=== PATIENT | male | born 1945 | race Caucasian/White ===

== ENCOUNTER 2019-12-10 12:47 | Inpatient (IN) | payer OTHER, BC ==
--- NOTE | 2019-12-10 13:02 | PDOC ---
History of Present Illness - General Stated Complaint: Shortness of Breath - History of Present Illness Initial Comments: 12/10/19 13:02 HPI: This is a 74 y/o male with a PMH of NIDDM, Afib on Eliquis, COPD and emphysema not on home O2, and COVID in April BIB to the ED due to progressively worsening SOB with deterioration for the past few days. The patient was seeing his therapist's assistant Dr. Douglas this a.m. who has been working him up for the SOB. He wa s saturating 98% on RA but when he began walking he dropped to the low 80's and he was advised to come into the ED. The SOB started getting worse 2 weeks ago, prior to the patient reports he was able to mow the lawn. For the past few days he has been having the SOB with accompanying lightheadedness and feeling as though he was going to pass out. Denies chest pain, abdominal pain, dysuria, nausea/vomiting, or fever/chills. ROS: GENERAL/CONSTITUTIONAL: No fever/chills, diaphoresis. Yes generalized weakness. HEENT: No change in vision. No ear pain. No sore throat. CARDIOVASCULAR: No chest pain, palpitations or peripheral edema RESPIRATORY: Yes shortness of breath and dypsnea with exertion. No cough, wheezing, or hemoptysis. GASTROINTESTINAL: No abdominal pain, nausea, vomiting, diarrhea or constipation. GENITOURINARY: No dysuria, frequency, or change in urination. MUSCULOSKELETAL: No joint or muscle swelling or pain. SKIN: No rash or hives NEUROLOGIC: No headache, vertigo, focal weakness, loss of consciousness, or change in strength/sensation. Yes lightheadedness ENDOCRINE: No increased thirst. No unexplained weight loss. HEMATOLOGIC/LYMPHATIC: No anemia, easy bleeding, or history of blood clots. PMH: NIDDM, Afib on Eliquis, COPD and emphysema not on home O2, and COVID in April PSx: Denied Social Hx: Denied etoh, tobacco, drug use Meds: See nurse note Allergies: See nurse note PE: GENERAL: Awake, alert, and fully oriented, in some respiratory distress. Patient is saturating 98% on 3L NC. Struggling to speak in full sentences. HEENT: Normocephalic, atraumatic. PERRLA, EOMI. No conjunctival pallor. Moist mucous membranes. NECK: Normal ROM and supple. No lymphadenopathy, JVD, or masses. CARDIOVASCULAR: Regular rate and rhythm, normal S1 and S2, no murmurs, rubs or gallops PULMONARY: Tachypneic. Breath sounds equal, clear to auscultation bilaterally. No wheezes, rales or rhonchi. ABDOMEN: Soft, nontender, normoactive bowel sounds. No guarding, no rebound. No masses EXTREMITIES: Normal range of motion, no edema or erythema, no calf tenderness. No clubbing or cyanosis. NEUROLOGICAL: Cranial nerves II through XII grossly intact. Normal speech SKIN: Warm, Dry, normal turgor, no rashes or lesions noted. Normal capillary refill. MDM: 12/10/19 13:44 This is a 74 y/o male with a PMH of NIDDM, Afib on Eliquis, COPD and emphysema not on home O2, and COVID in April BIBA to the ED due to progressively worsening SOB with deteriorating for the past few days. - Previously diagnosed with COVID in April, and has been declining since. - Not on home O2 - Saturating in 80's on 2L NC, turned up to 3L ddx: CHF vs COPD exacerbation, pneumonia, acs, ILD post COVID CBC, CMP, BNP, ABG CXR, EKG 10mg decadron - Plan to place on Bipap 12/10/19 14:29 CXR: IMPRESSION: Emphysematous changes as discussed above with bronchiectasis. ILD is suspected. Correlate clinically. Lung parenchymal changes have worsened as compared to prior imaging 2005. Multiple cystic lesions within the visualized portions of the kidneys which should be further assessed with ultrasound imaging. 12/10/19 14:58 CBC WNL CMP w/ Creat 1.7 - Prev hx of kidney ds BNP 3941 - no previous value for comparison - Patient feeling much better on Bipap - Vital stable 12/10/19 15:01 - Spoke with Dr. Douglas - no advanced imaging 12/10/19 15:21 - Admitted to Dr. Augustin Past History - Medical History Allergies/Adverse Reactions: Allergies Allergy/AdvReac Type Severity Reaction Status Date / Time No Known Allergies Allergy Verified 12/10/19 14:35 Home Medications: Ambulatory Orders Albuterol Sulfate Inhaler - [Ventolin Hfa Inhaler -] 2 inh PO QID 12/10/19 Apixaban [Eliquis] 5 mg PO BID 12/10/19 Atorvastatin Calcium 40 mg PO HS 12/10/19 Losartan Potassium 50 mg PO DAILY 12/10/19 Metformin HCl [Glucophage] 1,000 mg PO BID 12/10/19 Metoprolol Succinate 50 mg PO DAILY 12/10/19 Saxagliptin HCl [Onglyza] 5 mg PO DAILY 12/10/19 Solifenacin Succinate [Vesicare -] 5 mg PO DAILY 12/10/19 ED Treatment Course - LABORATORY CBC & Chemistry Diagram: 12/10/19 14:00 12/10/19 14:00 Discharge - Discharge Information Problems reviewed: Yes Clinical Impression/Diagnosis: COPD with acute exacerbation - Follow up/Referral - Patient Discharge Instructions - Post Discharge Activity
[2019-12-10 13:18] VITALS: BMI 29.5
--- NOTE | 2019-12-10 14:07 | PDOC ---
Documentation entered by Emanuel Yousif SCRIBE, acting as scribe for Jaylen Torres MD. Jaylen Torres MD: This documentation has been prepared by the Benja hernandez Xhesika, SCRIBE, under my direction and personally reviewed by me in its entirety. I confirm that the documentation accurately reflects all work, treatment, procedures, and medical decision making performed by me. Attending Attestation - Resident Resident Name: Bianca Carrillo - ED Attending Attestation I have performed the following: I have examined & evaluated the patient, The case was reviewed & discussed with the resident, I agree w/resident's findings & plan, Exceptions are as noted - HPI HPI: 12/10/19 13:20 The patient is a 74 year old male with a significant PMH of afib, on eliquis, COPD, and COVID (in April 2019) who presents to the emergency department for several weeks of worsening SOB on exertion. Pt reports cough without any productive sputum, leg swelling, calf pain or hemotysis. Pt states he was seen by Dr. Douglas this morning, Dr. Douglas pushed him to walk, pt desatted and was advised to come to the ED. Pt states he does not use any oxygen at home. The patient denies chest pain, headache and dizziness. Denies fever, chills, nausea, vomiting, diarrhea and constipation. Denies dysuria, frequency, urgency and hematuria. Pt has had an occasional complaint of intermittent episodes of lightehadedness, last episode yesterday this morning, lasts for several minutes at a time and feels like he is about to pass out, but denies any actual syncaop episodes - there are no associated cp, sob, n/v diaphoresis, palitations with the epsidoes. Allergies: Per Nursing Chart - Physicial Exam PE: 12/10/19 14:04 GENERAL: The patient is awake, alert, and fully oriented, Nontoxic - in no acute distress. HEAD: Normocephalic, atraumatic. EYES: extraocular movements intact, sclera anicteric, conjunctiva clear. ENT: Normal voice, Moist mucous membranes. NECK: Normal range of motion, supple LUNGS: scattered rales, no actue respiratory distress, speaking complete setnences HEART: Regular rate and rhythm, normal S1 and S2 without murmur, rub or gallop. ABDOMEN: Soft, nontender, No guarding, no rebound. No CVA tenderness EXTREMITIES: Normal range of motion, no edema. Neg homnas, no calf tendrness NEUROLOGICAL: No facial assymetry, Normal speech, PSYCH: Normal mood, normal affect. SKIN: Warm, Dry, normal turgor, - Medical Decision Making 12/10/19 14:05 suspect possible copd vs pna vs chf vs scarrng vs afib will obtain blood work, cxr, ekg will reassesss pt started on bipap Heart Score/ECG Review - ECG Impressions Comment:: 12/10/19 14:07 Twelve-lead EKG was performed and reviewed by me. Irregularly irregular, rate of 87 Right bundle branch block T wave inversions in V1 through V4, III and aVF Discharge - Discharge Information Problems reviewed: Yes Clinical Impression/Diagnosis: COPD with acute exacerbation, Acute respiratory failure with hypoxia Condition: Fair Disposition: HOME - Follow up/Referral - Patient Discharge Instructions - Post Discharge Activity
[2019-12-10] MEDS ORDERED: methylPREDNISolone NA SUCC 125 MG/2 ML VIAL IVPB ONE (14:24)
[2019-12-10 14:33] LABS: BASO % 0.7 % (0-2.0); EOS % 2.5 % (0-4.5); HEMATOCRIT 39.8 % (35.4-49); HEMOGLOBIN 13.3 GM/dL (11.7-16.9); LYMPH % 10.9 % (8-40); MCH 29.1 pg (25.7-33.7); MCHC 33.4 g/dl (32.0-35.9); MEAN CELL VOLUME 87.2 fl (80-96); MEAN PLT VOLUME 8.9 fl (7.5-11.1); MONO % 7.1 % (3.8-10.2); NEUT % 78.8 % (42.8-82.8); PLATELET COUNT 235 K/MM3 (134-434); RBC 4.57 M/mm3 (4.00-5.60); RDW 15.5 % (11.9-15.9); WHITE BLOOD COUNT 11.3 K/mm3 (4.0-10.0)
[2019-12-10] MEDS ORDERED: DEXAMETHASONE SOD PHOSPHATE 10 MG/1 ML VIAL IVPUSH ONE (14:42)
[2019-12-10] MEDS ORDERED: DEXAMETHASONE SOD PHOSPHATE 10 MG/1 ML VIAL ONE (14:49)
[2019-12-10 15:12] LABS: ALBUMIN 3.4 g/dl (3.4-5.0); BILIRUBIN,TOTAL 0.8 mg/dL (0.2-1); BLOOD UREA NITROGEN 33.1 mg/dL (7-18); CALCIUM 9.4 mg/dL (8.5-10.1); CREATININE 1.7 mg/dL (0.55-1.3); N-TERMINAL BNP 3941.8 pg/ml (5-450); POTASSIUM 5.1 mmol/L (3.5-5.1); TOT PROT 6.9 g/dl (6.4-8.2)
[2019-12-10 15:15] LABS: ARTERIAL BLD GAS O2 SATURATION 94.4 mmHg (95-98); ARTERIAL BLOOD GAS BASE EXCESS -5.4 mmol/L (-2-2); ARTERIAL BLOOD GAS PO2 68.4 mmHg (80-100); ARTERIAL BLOOD GAS pH 7.426 (7.350-7.450)
[2019-12-10 15:17] LABS: VENT MODE ST
[2019-12-10 15:18] LABS: VENT RATE 12
[2019-12-10] MEDS ORDERED: ALBUTEROL SO4 HFA INHALER IH PRN (16:30)
--- NOTE | 2019-12-10 16:40 | HP ---
Admitting History and Physical - Primary Care Physician PCP: Abbey Augustin - Admission Chief Complaint: dyspnea History of Present Illness: progressively worsening exertional dyspnea on minimal activities associated with dry cough for several days has had covid 19 infection in april-breathing has not been the same since home O2 went down to 80s History Source: Patient Limitations to Obtaining History: No Limitations - Past Medical History Cardiovascular: Yes: AFIB, HTN Pulmonary: Yes: COPD, Other (ILD non CT scan done in September 2019) Renal/: Yes: Renal Inusuff Endocrine: Yes: Diabetes Mellitus - Smoking History Smoking history: Former smoker Have you smoked in the past 12 months: No - Alcohol/Substance Use Hx Alcohol Use: No History of Substance Use: reports: None - Social History Usual Living Arrangement: Yes: With Spouse ADL: Independent History of Recent Travel: No (was in [facility] early April 2019) Home Medications - Allergies Allergies/Adverse Reactions: Allergies Allergy/AdvReac Type Severity Reaction Status Date / Time No Known Allergies Allergy Verified 12/10/19 14:35 - Home Medications Home Medications: Ambulatory Orders Albuterol Sulfate Inhaler - [Ventolin Hfa Inhaler -] 2 inh PO QID 12/10/19 Apixaban [Eliquis] 5 mg PO BID 12/10/19 Atorvastatin Calcium 40 mg PO HS 12/10/19 Losartan Potassium 50 mg PO DAILY 12/10/19 Metformin HCl [Glucophage] 1,000 mg PO BID 12/10/19 Metoprolol Succinate 50 mg PO DAILY 12/10/19 Saxagliptin HCl [Onglyza] 5 mg PO DAILY 12/10/19 Solifenacin Succinate [Vesicare -] 5 mg PO DAILY 12/10/19 Family Medical History Family History: Unremarkable Review of Systems - Review of Systems Constitutional: reports: No Symptoms Eyes: reports: No Symptoms HENT: reports: No Symptoms Neck: reports: No Symptoms Cardiovascular: denies: Chest Pain, Edema, Palpitations Respiratory: reports: Cough, Exercise Intolerance, SOB on Exertion, Wheezing (mild) Gastrointestinal: reports: No Symptoms Genitourinary: reports: No Symptoms Musculoskeletal: reports: No Symptoms Neurological: reports: Other (reports ''black outs" in past couple days-he does not remember events, LOC or syncope) Psychiatric: reports: No Symptoms Physical Examination Vital Signs: Vital Signs Temperature 98.2 F 12/10/19 13:10 Pulse Rate 77 12/10/19 13:50 Respiratory Rate 20 12/10/19 13:10 Blood Pressure 135/64 12/10/19 13:10 O2 Sat by Pulse Oximetry (%) 98 12/10/19 13:50 Constitutional: Yes: Well Nourished, Calm Eyes: Yes: Conjunctiva Clear HENT: Yes: Atraumatic Neck: Yes: Supple, Other (no JVD) Cardiovascular: Yes: Pulse Irregular Respiratory: Yes: On BiPap, On Nasal O2, Poor Air Entry Gastrointestinal: Yes: Normal Bowel Sounds, Soft Musculoskeletal: Yes: WNL Extremities: Yes: WNL Edema: No Peripheral Pulses WNL: Yes Integumentary: Yes: WNL Neurological: Yes: WNL Psychiatric: Yes: WNL Labs: CBC, BMP 12/10/19 14:00 12/10/19 14:00 BNP 3900 Imaging - Results Chest X-ray: Image Reviewed Problem List - Problems (1) COPD with acute exacerbation Code(s): J44.1 - CHRONIC OBSTRUCTIVE PULMONARY DISEASE W (ACUTE) EXACERBATION (2) Interstitial lung disease Code(s): J84.9 - INTERSTITIAL PULMONARY DISEASE, UNSPECIFIED (3) Atrial fibrillation Code(s): I48.91 - UNSPECIFIED ATRIAL FIBRILLATION Qualifiers: Atrial fibrillation type: paroxysmal Qualified Code(s): I48.0 - Paroxysmal atrial fibrillation (4) Hypertension Code(s): I10 - ESSENTIAL (PRIMARY) HYPERTENSION Qualifiers: Hypertension type: essential hypertension Qualified Code(s): I10 - Essential (primary) hypertension (5) Diabetes mellitus Code(s): E11.9 - TYPE 2 DIABETES MELLITUS WITHOUT COMPLICATIONS Qualifiers: Diabetes mellitus type: type 2 Diabetes mellitus terminal carman insulin use: without terminal carman use Assessment/Plan iv steroid BIPAP echo for LV fnct cont home medication
[2019-12-10] MEDS: methylPREDNISolone NA SUCC 40 MG/1 ML VIAL IVPUSH SCH ×2 (18:27→22:33)
[2019-12-10] MEDS: APIXABAN 5 MG TABLET PO SCH (22:33)
[2019-12-10] MEDS: metFORMIN HCL 500 MG TABLET (FP) PO SCH (22:33)
[2019-12-10] MEDS: ATORVASTATIN CA 40 MG TABLET (FP) PO SCH (22:33)
[2019-12-10] MEDS: INSULIN SLIDING SCALE (NOVOLOG) 1 VIAL SQ SCH (22:34)
[2019-12-11] MEDS ORDERED: PT OWN MED DRAWER 7, Y5N ONE ×2 (03:50→10:28)
[2019-12-11] MEDS: methylPREDNISolone NA SUCC 40 MG/1 ML VIAL IVPUSH SCH ×4 (03:53→22:31)
[2019-12-11] MEDS: metFORMIN HCL 500 MG TABLET (FP) PO SCH ×2 (06:15→21:01)
[2019-12-11] MEDS: INSULIN SLIDING SCALE (NOVOLOG) 1 VIAL SQ SCH ×4 (06:20→21:00)
--- NOTE | 2019-12-11 08:08 | PN ---
Progress Note (short form) - Note Progress Note: not on BIPAP overnight-patient did not want to use it covid19 negative Vital Signs Period Temp Pulse Resp BP Sys/Meraz Pulse Ox Last 24 Hr 97.6 F-98.2 F 77-96 18-20 106-151/60-92 92-98 s1s2 rrr lungs poor inspiratory effort abd soft non tender no edema c/o difficulty urinating 74 yo man with h/o COPD, Afib, HTN, NIDDM covid19 pneumonia in April-never hospitalized for it now with acute COPD exacerbation interstitial lung ds post covid? iv steroids o2 nebulizers sugar control continue home cardiac meds check echo r/o CHF, BNP was elevated on admission c/o urianry retention add flomax check bladder scan will need home o2 Problem List - Problems (1) COPD with acute exacerbation Code(s): J44.1 - CHRONIC OBSTRUCTIVE PULMONARY DISEASE W (ACUTE) EXACERBATION (2) Interstitial lung disease Code(s): J84.9 - INTERSTITIAL PULMONARY DISEASE, UNSPECIFIED (3) Atrial fibrillation Code(s): I48.91 - UNSPECIFIED ATRIAL FIBRILLATION Qualifiers: Atrial fibrillation type: paroxysmal Qualified Code(s): I48.0 - Paroxysmal atrial fibrillation (4) Hypertension Code(s): I10 - ESSENTIAL (PRIMARY) HYPERTENSION Qualifiers: Hypertension type: essential hypertension Qualified Code(s): I10 - Essential (primary) hypertension (5) Diabetes mellitus Code(s): E11.9 - TYPE 2 DIABETES MELLITUS WITHOUT COMPLICATIONS Qualifiers: Diabetes mellitus type: type 2 Diabetes mellitus intermodal customer service insulin use: without custodial use
[2019-12-11] MEDS ORDERED: SOLIFENACIN SUCCINATE 5 MG TAB PO SCH (10:00)
--- NOTE | 2019-12-11 10:08 | EKG ---
Test Reason : Blood Pressure : / mmHG Vent. Rate : 087 BPM Atrial Rate : 091 BPM P-R Int : 000 ms QRS Dur : 144 ms QT Int : 410 ms P-R-T Axes : 000 011 -16 degrees QTc Int : 493 ms ATRIAL FIBRILLATION RIGHT BUNDLE BRANCH BLOCK ABNORMAL ECG WHEN COMPARED WITH ECG OF 15-FEB-2006 09:34, RIGHT BUNDLE BRANCH BLOCK IS NOW PRESENT Confirmed by MD David, Abilio ([id number]) on 12/11/2019 10:08:20 AM Referred By: Confirmed By:Abilio Hernandez MD
[2019-12-11] MEDS: APIXABAN 5 MG TABLET PO SCH ×2 (10:31→21:01)
[2019-12-11] MEDS: LOSARTAN POTASSIUM 50 MG TABLET PO SCH (10:32)
[2019-12-11] MEDS: TAMSULOSIN HCL 0.4 MG CAP PO SCH (10:32)
--- NOTE | 2019-12-11 10:52 | ECHO ---
Version: 1 Name: SELENE LINARES Exam: Adult Echocardiogram Study Date: 12/11/2019, 9:34 AM Age: 74 Years MMode/2D Measurements & Calculations IVSd: 1.23 cm LVIDs: 3.5 cm LVIDd: 5.0 cm LVPWd: 1.27 cm LAV (MOD-bp): 207.0 ml LVOT diam: 2.04 cm Ao root diam: 4.0 cm LA dimension: 5.9 cm Doppler Measurements & Calculations MV E max irvin: 70.4 cm/sec Med E/e': 6.9 MV A max irvin: 38.6 cm/sec Med Peak E' Irvin: 10.2 cm/sec MV E/A: 1.83 Lat E/e': 4.8 Lat Peak E' Irvin: 14.8 cm/sec MR max P.5 mmHg Ao max P.2 mmHg Ao V2 max: 143.3 cm/sec AI P1/2t: 501.3 msec TR max irvin: 384.3 cm/sec TR max P.9 mmHg Left Ventricle The left ventricular size, thickness and function are normal. EF 56%. Abnormal diastolic relaxation. Right Ventricle The right ventricle is normal in size and function. Atria Severe LAE. Moderate to Severe ANABEL. Mitral Valve Mitral Valve Prolapse. Moderate MR. Tricuspid Valve The tricuspid valve is normal in structure and function. Moderate TR, The PASP is 53 mmHg consistent with moderate to severe pulmonary HTN. Aortic Valve Fibrocalcific calcific changes to the aortic valve without aortic stenosis. Mild to moderate aortic insuffciency. Pulmonic Valve The pulmonic valve is normal in structure and function. Great Vessels The aortic root measured 4.0 cm. Pericardium/Pleura There is no pericardial effusion. Summary Statements The left ventricular size, thickness and function are normal Abnormal diastolic relaxation The right ventricle is normal in size and function. Moderate to Severe ANABEL Severe LAE Mitral Valve Prolapse Moderate MR The tricuspid valve is normal in structure and function. Moderate TR, The PASP is 53 mmHg consistent with moderate to severe pulmonary HTN Fibrocalcific calcific changes to the aortic valve without aortic stenosis Mild to moderate aortic insuffciency MD Abilio Hernandez 12/11/2019, 10:51 AM Ordering Physician: Abbey Augustin Performed By: Maria D Mcgrath
--- NOTE | 2019-12-11 12:36 | CON.PULM ---
Consult Consult Specialty:: PULM/CCM Referred by:: SYLVIA Reason for Consultation:: SOB - History of Present Illness Chief Complaint: SOB History of Present Illness: 74 M, AFib on eliquis, COPD due to previous , and COVID (in April 2019). Did not require any hospitalization or specific treatment. Admitted via the ER due to worsening SOB on exertion for the past few days. Was seen by Dr Douglas and subsequently sent to the hospital. No fever or chills. No hemoptysis or night sweats. No travel history or specific sick contacts. - History Source History Provided By: Patient Limitations to Obtaining History: No Limitations - Past Medical History Cardio/Vascular: Yes: AFIB, HTN Pulmonary: Yes: Bronchitis, COPD, Other (ILD non CT scan done in September 2019). No: Asthma, Cancer, O2 Dependent, Pneumonia, Previously Intubated, Pulmonary Embolus, Pulmonary Fibrosis, Sleep Apnea Renal/: Yes: Renal Inusuff Endocrine: Yes: Diabetes Mellitus - Alcohol/Substance Use Hx Alcohol Use: No History of Substance Use: reports: None - Smoking History Smoking history: Former smoker Have you smoked in the past 12 months: No - Social History ADL: Independent History of Recent Travel: No (was in [facility] early April 2019) Home Medications - Allergies Allergies/Adverse Reactions: Allergies Allergy/AdvReac Type Severity Reaction Status Date / Time No Known Allergies Allergy Verified 12/10/19 14:35 - Home Medications Home Medications: Ambulatory Orders Albuterol Sulfate Inhaler - [Ventolin Hfa Inhaler -] 2 inh PO QID 12/10/19 Apixaban [Eliquis] 5 mg PO BID 12/10/19 Atorvastatin Calcium 40 mg PO HS 12/10/19 Losartan Potassium 50 mg PO DAILY 12/10/19 Metformin HCl [Glucophage] 1,000 mg PO BID 12/10/19 Metoprolol Succinate 50 mg PO DAILY 12/10/19 Saxagliptin HCl [Onglyza] 5 mg PO DAILY 12/10/19 Solifenacin Succinate [Vesicare -] 5 mg PO DAILY 12/10/19 Family Medical History Family History: Unremarkable Review of Systems - Review of Systems Constitutional: reports: Malaise. denies: Chills, Fever, Night Sweats Eyes: reports: No Symptoms, Recent Change in Vision Neck: reports: No Symptoms Cardiovascular: reports: Shortness of Breath. denies: Chest Pain, Edema, Palpitations Respiratory: reports: Cough, SOB, SOB on Exertion. denies: Hemoptysis, PND, Snoring, Wheezing Gastrointestinal: reports: No Symptoms Genitourinary: reports: No Symptoms Breasts: reports: No Symptoms Reported Musculoskeletal: reports: No Symptoms Integumentary: reports: No Symptoms Neurological: reports: No Symptoms Endocrine: reports: No Symptoms Hematology/Lymphatic: reports: No Symptoms Psychiatric: reports: No Symptoms Physical Exam Vital Sings: Vital Signs Temperature 97.3 F L 12/11/19 10:00 Pulse Rate 96 H 12/11/19 10:00 Respiratory Rate 19 12/11/19 10:00 Blood Pressure 124/82 12/11/19 10:00 O2 Sat by Pulse Oximetry (%) 92 L 12/11/19 10:00 Constitutional: Yes: No Distress, Calm Eyes: Yes: Conjunctiva Clear, EOM Intact HENT: Yes: Atraumatic, Normocephalic Neck: Yes: Supple, Trachea Midline Cardiovascular: Yes: Regular Rate and Rhythm Respiratory: Yes: Cough, Diminished, On Nasal O2, Rhonchi, SOB, SOB on Exertion, Wheezes. No: Accessory Muscle Use, Rales, Stridor, Tachypnea ...Inspection: Yes: WNL ...Clubbing: No Gastrointestinal: Yes: Normal Bowel Sounds, Soft Renal/: Yes: WNL Musculoskeletal: Yes: WNL Extremities: Yes: WNL Edema: No Peripheral Pulses WNL: Yes Integumentary: Yes: WNL Neurological: Yes: WNL, Alert, Oriented ...Motor Strength: WNL Psychiatric: Yes: WNL, Alert, Oriented Labs: CBC, BMP 12/10/19 14:00 12/10/19 14:00 ABG Results ABG pH 7.426 (7.350-7.450) 12/10/19 14:45 ABG HCO3 17.4 mmol/L (22-27) L 12/10/19 14:45 ABG O2 Sat (Measured) 94.4 mmHg (95-98) L 12/10/19 14:45 ABG O2 Content No Result Required. 12/10/19 14:45 ABG Base Excess -5.4 mmol/L (-2-2) L 12/10/19 14:45 Imaging - Results Chest X-ray: Report Reviewed, Image Reviewed Cat Scan: Report Reviewed, Image Reviewed Problem List - Problems (1) Atrial fibrillation Code(s): I48.91 - UNSPECIFIED ATRIAL FIBRILLATION Qualifiers: Atrial fibrillation type: paroxysmal Qualified Code(s): I48.0 - Paroxysmal atrial fibrillation (2) COPD with acute exacerbation Code(s): J44.1 - CHRONIC OBSTRUCTIVE PULMONARY DISEASE W (ACUTE) EXACERBATION (3) Diabetes mellitus Code(s): E11.9 - TYPE 2 DIABETES MELLITUS WITHOUT COMPLICATIONS Qualifiers: Diabetes mellitus type: type 2 Diabetes mellitus vermin exterminator insulin use: without vermin exterminator use (4) Hypertension Code(s): I10 - ESSENTIAL (PRIMARY) HYPERTENSION Qualifiers: Hypertension type: essential hypertension Qualified Code(s): I10 - Essential (primary) hypertension (5) Interstitial lung disease Code(s): J84.9 - INTERSTITIAL PULMONARY DISEASE, UNSPECIFIED Assessment/Plan IMP: Possible worsening of ILD due to previous COVID19 pneumonitis Do not suspect PNA PLAN: Medrol Spiriva Supplemental O2 as needed Eliquis Albuterol HFA No smoking Monitor off ABX Will follow Thank you. Dr Garcia
[2019-12-11] MEDS: TIOTROPIUM BROMIDE 2.5 MCG (SPIRIVA) RESPIMAT INHALER IH SCH (15:29)
[2019-12-11] MEDS: ATORVASTATIN CA 40 MG TABLET (FP) PO SCH (21:01)
--- NOTE | 2019-12-11 22:59 | HOSP ---
Subjective - Review of Symptoms Events since last encounter: Hospitalist Encounter Was notified by the RN that the patient hasn't voided since the start of her shift. She used the bladder scan and it showed 619. Order placed for Harris Catheter for urinary retention Physical Examination Vital Signs: Vital Signs Temperature 98.7 F 12/11/19 20:48 Pulse Rate 75 12/11/19 21:15 Respiratory Rate 16 12/11/19 20:48 Blood Pressure 108/72 12/11/19 20:48 O2 Sat by Pulse Oximetry (%) 98 12/11/19 21:15 Labs: CBC, BMP 12/10/19 14:00 12/10/19 14:00 Hospitalist Encounter Assessment: This is a 74 y/o male with a PMH of NIDDM, Afib on Eliquis, COPD and emphysema not on home O2, and COVID in April to the ED due to progressively worsening SOB with deterioration for the past few days. Admitted for COPD Exacerbation Outcome: The RN was unsuccessful placing harris cath reported resistance 14fr straight catheter placed by md, initial output measured 500ml. d/w RN continue strict INOs, continue Flomax Recommendations/Interventions: Urology Consult for Urinary Retention
[2019-12-12] MEDS ORDERED: MAG HYDROX/AL HYDROX/SIMETH 30 ML UNIT-DOSE CUP PO ONE (02:43)
[2019-12-12] MEDS: methylPREDNISolone NA SUCC 40 MG/1 ML VIAL IVPUSH SCH ×4 (03:48→21:27)
[2019-12-12] MEDS: metFORMIN HCL 500 MG TABLET (FP) PO SCH ×2 (06:06→21:27)
[2019-12-12] MEDS: INSULIN SLIDING SCALE (NOVOLOG) 1 VIAL SQ SCH ×4 (06:07→21:33)
[2019-12-12 07:55] LABS: BASO % 0.1 % (0-2.0); HEMATOCRIT 36.6 % (35.4-49); HEMOGLOBIN 12.2 GM/dL (11.7-16.9); LYMPH % 3.1 % (8-40); MCH 29.6 pg (25.7-33.7); MCHC 33.4 g/dl (32.0-35.9); MEAN CELL VOLUME 88.6 fl (80-96); MEAN PLT VOLUME 8.8 fl (7.5-11.1); MONO % 1.3 % (3.8-10.2); NEUT % 95.5 % (42.8-82.8); PLATELET COUNT 228 K/MM3 (134-434); RBC 4.13 M/mm3 (4.00-5.60); RDW 15.8 % (11.9-15.9); WHITE BLOOD COUNT 21.1 K/mm3 (4.0-10.0)
--- NOTE | 2019-12-12 08:27 | PN ---
Progress Note (short form) - Note Progress Note: CBC, BMP 12/12/19 06:27 Vital Signs Period Temp Pulse Resp BP Sys/Meraz Pulse Ox Last 24 Hr 97.3 F-98.7 F 75-96 16-20 100-136/52-82 90-98 s1s2 rrr lungs better air entry, coarse basal crackles abd soft non tender no edema c/o difficulty urinating had to be straight cathed twice yesterday with 800cc and 1200 cc residual staff reports difficulty passing catheter 74 yo man with h/o COPD, Afib, HTN, NIDDM covid19 pneumonia in April-never hospitalized for it now with acute COPD exacerbation interstitial lung ds post covid iv steroids-slow taper o2 nebulizers dc bipap pt has not used it since admission sugar control continue home cardiac meds echo reviewed shows pulm. htn urinary retention on flomax, will dc solifenacin requested urology f/up will need home o2 Problem List - Problems (1) COPD with acute exacerbation Code(s): J44.1 - CHRONIC OBSTRUCTIVE PULMONARY DISEASE W (ACUTE) EXACERBATION (2) Interstitial lung disease Code(s): J84.9 - INTERSTITIAL PULMONARY DISEASE, UNSPECIFIED (3) Atrial fibrillation Code(s): I48.91 - UNSPECIFIED ATRIAL FIBRILLATION Qualifiers: Atrial fibrillation type: paroxysmal Qualified Code(s): I48.0 - Paroxysmal atrial fibrillation (4) Hypertension Code(s): I10 - ESSENTIAL (PRIMARY) HYPERTENSION Qualifiers: Hypertension type: essential hypertension Qualified Code(s): I10 - Essential (primary) hypertension (5) Diabetes mellitus Code(s): E11.9 - TYPE 2 DIABETES MELLITUS WITHOUT COMPLICATIONS Qualifiers: Diabetes mellitus type: type 2 Diabetes mellitus watermelon harvesting supervisor insulin use: without watermelon harvesting supervisor use
[2019-12-12 08:43] LABS: POTASSIUM 4.4 mmol/L (3.5-5.1)
[2019-12-12 08:58] LABS: ALBUMIN 3.2 g/dl (3.4-5.0); BILIRUBIN,TOTAL 0.4 mg/dL (0.2-1); BLOOD UREA NITROGEN 51.4 mg/dL (7-18); CALCIUM 9.1 mg/dL (8.5-10.1); TOT PROT 6.5 g/dl (6.4-8.2)
[2019-12-12] MEDS: TAMSULOSIN HCL 0.4 MG CAP PO SCH (09:12)
[2019-12-12] MEDS: TIOTROPIUM BROMIDE 2.5 MCG (SPIRIVA) RESPIMAT INHALER IH SCH (09:12)
[2019-12-12] MEDS: LOSARTAN POTASSIUM 50 MG TABLET PO SCH (09:12)
[2019-12-12] MEDS: APIXABAN 5 MG TABLET PO SCH ×2 (09:12→21:27)
[2019-12-12 10:35] LABS: ANISOCYTOSIS 1+; MACROCYTOSIS 0; PLATELET ESTIMATE NORMAL
--- NOTE | 2019-12-12 10:37 | PN ---
Progress Note, Physician History of Present Illness: pulmonary alert,feeling better,less dyspneic on O2. ECHO ,moderate-severe pulmonary htn - Current Medication List Current Medications: Active Medications Albuterol Sulfate (Ventolin Hfa Inhaler -) 2 puff IH Q6H PRN PRN Reason: ASTHMA Apixaban (Eliquis -) 5 mg PO BID [facility] Last Admin: 12/12/19 09:12 Dose: 5 mg Documented by: Atorvastatin Calcium (Lipitor -) 40 mg PO HS [facility] Last Admin: 12/11/19 21:01 Dose: 40 mg Documented by: Insulin Aspart (Novolog Vial Sliding Scale -) 1 vial SQ ACHS [facility]; Protocol Last Admin: 12/12/19 06:07 Dose: 2 units Documented by: Losartan Potassium (Cozaar -) 50 mg PO DAILY [facility] Last Admin: 12/12/19 09:12 Dose: 50 mg Documented by: Metformin HCl (Glucophage -) 1,000 mg PO BID@0700,2200 [facility] Last Admin: 12/12/19 06:06 Dose: 1,000 mg Documented by: Methylprednisolone Sodium Succinate (Solu-Medrol -) 40 mg IVPUSH Q6H [facility] Last Admin: 12/12/19 09:11 Dose: 40 mg Documented by: Metoprolol Succinate (Toprol Xl -) 50 mg PO DAILY [facility] Last Admin: 12/12/19 09:12 Dose: 50 mg Documented by: Sitagliptin Phosphate (Januvia -) 100 mg PO ACBK [facility] Last Admin: 12/12/19 06:06 Dose: 100 mg Documented by: Tamsulosin HCl (Flomax -) 0.4 mg PO DAILY@0830 [facility] Last Admin: 12/12/19 09:12 Dose: 0.4 mg Documented by: Tiotropium [place] (Spiriva Respimat) 2 puff IH DAILY [facility] Last Admin: 12/12/19 09:12 Dose: 2 puff Documented by: - Objective Vital Signs: Vital Signs Temperature 97.7 F 12/12/19 06:00 Pulse Rate 84 12/12/19 06:00 Respiratory Rate 18 12/12/19 06:00 Blood Pressure 136/74 12/12/19 06:00 O2 Sat by Pulse Oximetry (%) 91 L 12/12/19 06:00 Constitutional: Yes: Well Nourished, Calm Eyes: Yes: WNL HENT: Yes: WNL Neck: Yes: WNL Cardiovascular: Yes: Pulse Irregular, S1, S2 Respiratory: Yes: Rales (bibasilar crackles) Gastrointestinal: Yes: Normal Bowel Sounds, Soft Extremities: Yes: WNL Edema: No Labs: CBC, BMP 12/12/19 06:27 12/12/19 06:27 Assessment/Plan Problem List - Problems (1) Atrial fibrillation Code(s): I48.91 - UNSPECIFIED ATRIAL FIBRILLATION Qualifiers: Atrial fibrillation type: paroxysmal Qualified Code(s): I48.0 - Paroxysmal atrial fibrillation (2) COPD with acute exacerbation Code(s): J44.1 - CHRONIC OBSTRUCTIVE PULMONARY DISEASE W (ACUTE) EXACERBATION (3) Diabetes mellitus Code(s): E11.9 - TYPE 2 DIABETES MELLITUS WITHOUT COMPLICATIONS Qualifiers: Diabetes mellitus type: type 2 Diabetes mellitus long-term insulin use: without keno terminal operator use (4) Hypertension Code(s): I10 - ESSENTIAL (PRIMARY) HYPERTENSION Qualifiers: Hypertension type: essential hypertension Qualified Code(s): I10 - Essential (primary) hypertension (5) Interstitial lung disease Code(s): J84.9 - INTERSTITIAL PULMONARY DISEASE, UNSPECIFIED Assessment/Plan IMP: Acute hypoxemic respiratory failure Copd Possible worsening of ILD due to previous COVID19 pneumonitis Moderate-Severe Pulmonary Htn PLAN: Medrol same dose Spiriva Supplemental O2 as needed Eliquis Albuterol HFA No smoking consider Cardiology evaluation DR SHANKS
--- NOTE | 2019-12-12 13:17 | CON.GU ---
Consult Consult Specialty:: Urology Referred by:: Medical service Reason for Consultation:: Urinary retention - History of Present Illness Chief Complaint: 74 yo male admitted for COPD wbc 21K w difficulty voiding. Pt straight cath for 800 and 1200 cc pvr. Pt states he is voiding today unclear on quantity - History Source History Provided By: Patient, Medical Record - Past Medical History Cardio/Vascular: Yes: AFIB, HTN Pulmonary: Yes: Bronchitis, COPD, Other (ILD non CT scan done in September 2019). No: Asthma, Cancer, O2 Dependent, Pneumonia, Previously Intubated, Pulmonary Embolus, Pulmonary Fibrosis, Sleep Apnea Renal/: Yes: Renal Inusuff, BPH Endocrine: Yes: Diabetes Mellitus - Alcohol/Substance Use Hx Alcohol Use: No History of Substance Use: reports: None - Smoking History Smoking history: Former smoker Have you smoked in the past 12 months: No - Social History ADL: Independent History of Recent Travel: No (was in [facility] early April 2019) Home Medications - Allergies Allergies/Adverse Reactions: Allergies Allergy/AdvReac Type Severity Reaction Status Date / Time No Known Allergies Allergy Verified 12/10/19 14:35 - Home Medications Home Medications: Ambulatory Orders Albuterol Sulfate Inhaler - [Ventolin Hfa Inhaler -] 2 inh PO QID 12/10/19 Apixaban [Eliquis] 5 mg PO BID 12/10/19 Atorvastatin Calcium 40 mg PO HS 12/10/19 Losartan Potassium 50 mg PO DAILY 12/10/19 Metformin HCl [Glucophage] 1,000 mg PO BID 12/10/19 Metoprolol Succinate 50 mg PO DAILY 12/10/19 Saxagliptin HCl [Onglyza] 5 mg PO DAILY 12/10/19 Solifenacin Succinate [Vesicare -] 5 mg PO DAILY 12/10/19 Family Medical History Family History: Unremarkable Physical Exam- Vital Signs: Vital Signs Temperature 97.4 F L 12/12/19 10:00 Pulse Rate 69 12/12/19 10:00 Respiratory Rate 19 12/12/19 10:00 Blood Pressure 108/55 L 12/12/19 10:00 O2 Sat by Pulse Oximetry (%) 92 L 12/12/19 10:00 Labs: CBC, BMP 12/12/19 06:27 12/12/19 06:27 Problem List - Problems (1) Urinary retention due to benign prostatic hyperplasia Assessment/Plan: 74 yo male w BPH incomplete voiding previously straight cath Pt currently voiding on flomax ;follow pvr If persistantly retaining leave harris to sd Discuss possible tur when clinically stable AURELIA for cr 2.0 possible obstructive uropathy Code(s): N40.1 - BENIGN PROSTATIC HYPERPLASIA WITH LOWER URINARY TRACT SYMP; R33.8 - OTHER RETENTION OF URINE
--- NOTE | 2019-12-12 17:50 | CON.CARD ---
Consult Consult Specialty:: Cardiology - History of Present Illness History of Present Illness: 74 M, AFib on eliquis, COPD, and COVID (in April 2019). Did not require any hospitalization or specific treatment. Admitted via the ER due to worsening SOB on exertion for the past few days. - History Source History Provided By: Medical Record - Past Medical History Cardio/Vascular: Yes: AFIB, HTN Pulmonary: Yes: Bronchitis, COPD, Other (ILD non CT scan done in September 2019). No: Asthma, Cancer, O2 Dependent, Pneumonia, Previously Intubated, Pulmonary Embolus, Pulmonary Fibrosis, Sleep Apnea Renal/: Yes: Renal Inusuff, BPH Endocrine: Yes: Diabetes Mellitus - Alcohol/Substance Use Hx Alcohol Use: No History of Substance Use: reports: None - Smoking History Smoking history: Former smoker Have you smoked in the past 12 months: No - Social History ADL: Independent History of Recent Travel: No (was in [facility] early April 2019) Home Medications - Allergies Allergies/Adverse Reactions: Allergies Allergy/AdvReac Type Severity Reaction Status Date / Time No Known Allergies Allergy Verified 12/10/19 14:35 - Home Medications Home Medications: Ambulatory Orders Albuterol Sulfate Inhaler - [Ventolin Hfa Inhaler -] 2 inh PO QID 12/10/19 Apixaban [Eliquis] 5 mg PO BID 12/10/19 Atorvastatin Calcium 40 mg PO HS 12/10/19 Losartan Potassium 50 mg PO DAILY 12/10/19 Metformin HCl [Glucophage] 1,000 mg PO BID 12/10/19 Metoprolol Succinate 50 mg PO DAILY 12/10/19 Saxagliptin HCl [Onglyza] 5 mg PO DAILY 12/10/19 Solifenacin Succinate [Vesicare -] 5 mg PO DAILY 12/10/19 Family Medical History Family History: Unremarkable Review of Systems - Review of Systems Constitutional: reports: No Symptoms Eyes: reports: No Symptoms HENT: reports: No Symptoms Neck: reports: No Symptoms Cardiovascular: reports: Shortness of Breath Respiratory: reports: SOB, SOB on Exertion Gastrointestinal: reports: No Symptoms Genitourinary: reports: No Symptoms Breasts: reports: No Symptoms Reported Musculoskeletal: reports: No Symptoms Integumentary: reports: No Symptoms Neurological: reports: No Symptoms Endocrine: reports: No Symptoms Hematology/Lymphatic: reports: No Symptoms Psychiatric: reports: No Symptoms Vital Signs: Vital Signs Temperature 97.6 F 12/12/19 13:25 Pulse Rate 74 12/12/19 13:25 Respiratory Rate 20 12/12/19 13:25 Blood Pressure 98/59 L 12/12/19 13:25 O2 Sat by Pulse Oximetry (%) 98 12/12/19 13:25 Constitutional: Yes: Well Nourished, No Distress, Calm Eyes: Yes: WNL, Conjunctiva Clear, EOM Intact HENT: Yes: WNL, Atraumatic, Normocephalic Neck: Yes: WNL, Supple, Trachea Midline Respiratory: Yes: Diminished Gastrointestinal: Yes: WNL, Normal Bowel Sounds Renal/: Yes: WNL Cardiovascular: Yes: Pulse Irregular Musculoskeletal: Yes: WNL Extremities: Yes: WNL Integumentary: Yes: WNL Neurological: Yes: WNL, Alert, Oriented ...Motor Strength: WNL Psychiatric: Yes: WNL, Alert, Oriented - Other Data Labs, Other Data: CBC, BMP 12/12/19 06:27 12/12/19 06:27 Imaging - Results Chest X-ray: Image Reviewed (increased markings CM) EKG: Image Reviewed (af rbbb) Problem List - Problems (1) Atrial fibrillation Code(s): I48.91 - UNSPECIFIED ATRIAL FIBRILLATION Qualifiers: Atrial fibrillation type: paroxysmal Qualified Code(s): I48.0 - Paroxysmal atrial fibrillation (2) COPD with acute exacerbation Code(s): J44.1 - CHRONIC OBSTRUCTIVE PULMONARY DISEASE W (ACUTE) EXACERBATION (3) Diabetes mellitus Code(s): E11.9 - TYPE 2 DIABETES MELLITUS WITHOUT COMPLICATIONS Qualifiers: Diabetes mellitus type: type 2 Diabetes mellitus mcfp insulin use: without mcfp use (4) Hypertension Code(s): I10 - ESSENTIAL (PRIMARY) HYPERTENSION Qualifiers: Hypertension type: essential hypertension Qualified Code(s): I10 - Essential (primary) hypertension (5) Interstitial lung disease Code(s): J84.9 - INTERSTITIAL PULMONARY DISEASE, UNSPECIFIED (6) Urinary retention due to benign prostatic hyperplasia Code(s): N40.1 - BENIGN PROSTATIC HYPERPLASIA WITH LOWER URINARY TRACT SYMP; R33.8 - OTHER RETENTION OF URINE Assessment/Plan 74 M, AFib on eliquis, COPD , and COVID (in April 2019). Did not require any hospitalization or specific treatment. Admitted via the ER due to worsening SOB on exertion for the past few days. ECHO showed nl LVEF moderate MR, MVP moderate PHT severely dilated LA RA Plan; cont rate control and AC COPD/ILD treatment as per pulmonary Will need CAD workup/evaluation eg. stress test if not done recently.
[2019-12-12] MEDS: ATORVASTATIN CA 40 MG TABLET (FP) PO SCH (21:27)
[2019-12-13] MEDS: methylPREDNISolone NA SUCC 40 MG/1 ML VIAL IVPUSH SCH ×3 (01:56→17:02)
[2019-12-13] MEDS: metFORMIN HCL 500 MG TABLET (FP) PO SCH ×2 (06:17→21:14)
[2019-12-13] MEDS: INSULIN SLIDING SCALE (NOVOLOG) 1 VIAL SQ SCH ×4 (06:19→21:14)
--- NOTE | 2019-12-13 08:20 | PN ---
Progress Note (short form) - Note Progress Note: CBC, BMP 12/12/19 06:27 12/12/19 06:27 Vital Signs Period Temp Pulse Resp BP Sys/Meraz Pulse Ox Last 24 Hr 97.4 F-97.7 F 69-74 18-20 98-142/55-80 92-98 s1s2 rrr lungs better air entry, coarse basal crackles abd soft non tender no edema urinating well since yesterday breathing better 74 yo man with h/o COPD, Afib, HTN, NIDDM covid19 pneumonia in April-never hospitalized for it now with acute COPD exacerbation interstitial lung ds post covid likely pulm htn on echo iv steroids-slow taper o2 nebulizers sugar control continue home cardiac meds urinary retention on flomax, will dc solifenacin us shows small renal cysts , no obstruction will need home o2-check pre and post consults appreciated Problem List - Problems (1) COPD with acute exacerbation Code(s): J44.1 - CHRONIC OBSTRUCTIVE PULMONARY DISEASE W (ACUTE) EXACERBATION (2) Interstitial lung disease Code(s): J84.9 - INTERSTITIAL PULMONARY DISEASE, UNSPECIFIED (3) Atrial fibrillation Code(s): I48.91 - UNSPECIFIED ATRIAL FIBRILLATION Qualifiers: Atrial fibrillation type: paroxysmal Qualified Code(s): I48.0 - Paroxysmal atrial fibrillation (4) Hypertension Code(s): I10 - ESSENTIAL (PRIMARY) HYPERTENSION Qualifiers: Hypertension type: essential hypertension Qualified Code(s): I10 - Essential (primary) hypertension (5) Diabetes mellitus Code(s): E11.9 - TYPE 2 DIABETES MELLITUS WITHOUT COMPLICATIONS Qualifiers: Diabetes mellitus type: type 2 Diabetes mellitus prison insulin use: without prison use
[2019-12-13] MEDS: LOSARTAN POTASSIUM 50 MG TABLET PO SCH ×2 (09:22→11:58)
[2019-12-13] MEDS: APIXABAN 5 MG TABLET PO SCH ×2 (09:22→21:14)
[2019-12-13] MEDS: TAMSULOSIN HCL 0.4 MG CAP PO SCH (09:22)
[2019-12-13] MEDS: TIOTROPIUM BROMIDE 2.5 MCG (SPIRIVA) RESPIMAT INHALER IH SCH (09:35)
--- NOTE | 2019-12-13 11:24 | PN ---
Progress Note (short form) - Note Progress Note: Resting in NAD. Reports feeling overall better. Less SOB. No CP. Intake & Output 12/10/19 12/11/19 12/12/19 12/13/19 23:59 23:59 23:59 23:59 Intake Total 0 500 510 10 Output Total 800 1600 Balance 0 -300 -1090 10 Weight 195 lb Last Vital Signs Temp Pulse Resp BP Pulse Ox 97.7 F 72 18 117/62 93 L 12/13/19 05:55 12/13/19 05:55 12/13/19 05:55 12/13/19 05:55 12/13/19 05:55 Active Medications Albuterol Sulfate (Ventolin Hfa Inhaler -) 2 puff IH Q6H PRN PRN Reason: ASTHMA Apixaban (Eliquis -) 5 mg PO BID [facility] Last Admin: 12/13/19 09:22 Dose: 5 mg Documented by: Atorvastatin Calcium (Lipitor -) 40 mg PO HS [facility] Last Admin: 12/12/19 21:27 Dose: 40 mg Documented by: Insulin Aspart (Novolog Vial Sliding Scale -) 1 vial SQ [facility]; Protocol Last Admin: 12/13/19 06:19 Dose: 2 units Documented by: Losartan Potassium (Cozaar -) 50 mg PO DAILY [facility] Last Admin: 12/13/19 09:22 Dose: 50 mg Documented by: Metformin HCl (Glucophage -) 1,000 mg PO BID@0700,2200 [facility] Last Admin: 12/13/19 06:17 Dose: 1,000 mg Documented by: Methylprednisolone Sodium Succinate (Solu-Medrol -) 40 mg IVPUSH Q8H [facility] Last Admin: 12/13/19 09:22 Dose: 40 mg Documented by: Metoprolol Succinate (Toprol Xl -) 50 mg PO DAILY [facility] Last Admin: 12/13/19 09:22 Dose: 50 mg Documented by: Sitagliptin Phosphate (Januvia -) 100 mg PO ACBK [facility] Last Admin: 12/13/19 06:18 Dose: 100 mg Documented by: Tamsulosin HCl (Flomax -) 0.4 mg PO DAILY@0830 [facility] Last Admin: 12/13/19 09:22 Dose: 0.4 mg Documented by: Tiotropium [place] (Spiriva Respimat) 2 puff IH DAILY [facility] Last Admin: 12/13/19 09:35 Dose: 2 puff Documented by: Constitutional: Yes: No Distress, Calm Eyes: Yes: Conjunctiva Clear, EOM Intact HENT: Yes: Atraumatic, Normocephalic Neck: Yes: Supple, Trachea Midline Cardiovascular: Yes: Regular Rate and Rhythm Respiratory: Yes: Cough, Diminished, On Nasal O2, Rhonchi. No: Wheezes, Accessory Muscle Use, Rales, Stridor, Tachypnea ...Inspection: Yes: WNL ...Clubbing: No Gastrointestinal: Yes: Normal Bowel Sounds, Soft Renal/: Yes: WNL Musculoskeletal: Yes: WNL Extremities: Yes: WNL Edema: No Peripheral Pulses WNL: Yes Integumentary: Yes: WNL Neurological: Yes: WNL, Alert, Oriented ...Motor Strength: WNL Psychiatric: Yes: WNL, Alert, Oriented Labs: Laboratory Results - last 24 hr 12/12/19 12/12/19 12/12/19 11:25 17:02 21:31 POC Glucometer 196 209 232 12/13/19 06:17 POC Glucometer 183 Imaging - Results Chest X-ray: Report Reviewed, Image Reviewed Cat Scan: Report Reviewed, Image Reviewed Problem List - Problems (1) Atrial fibrillation Code(s): I48.91 - UNSPECIFIED ATRIAL FIBRILLATION Qualifiers: Atrial fibrillation type: paroxysmal Qualified Code(s): I48.0 - Paroxysmal atrial fibrillation (2) COPD with acute exacerbation Code(s): J44.1 - CHRONIC OBSTRUCTIVE PULMONARY DISEASE W (ACUTE) EXACERBATION (3) Diabetes mellitus Code(s): E11.9 - TYPE 2 DIABETES MELLITUS WITHOUT COMPLICATIONS Qualifiers: Diabetes mellitus type: type 2 Diabetes mellitus snf insulin use: without snf use (4) Hypertension Code(s): I10 - ESSENTIAL (PRIMARY) HYPERTENSION Qualifiers: Hypertension type: essential hypertension Qualified Code(s): I10 - Essential (primary) hypertension (5) Interstitial lung disease Code(s): J84.9 - INTERSTITIAL PULMONARY DISEASE, UNSPECIFIED Assessment/Plan IMP: Possible worsening of ILD due to previous COVID19 pneumonitis Do not suspect PNA PLAN: Medrol : Can likely change to Prednisone in AM Spiriva Supplemental O2 as needed Eliquis Albuterol HFA No smoking Monitor off ABX Check Pre and Post ambulation saturation Dr Garcia Problem List - Problems (1) Atrial fibrillation Code(s): I48.91 - UNSPECIFIED ATRIAL FIBRILLATION Qualifiers: Atrial fibrillation type: paroxysmal Qualified Code(s): I48.0 - Paroxysmal atrial fibrillation (2) COPD with acute exacerbation Code(s): J44.1 - CHRONIC OBSTRUCTIVE PULMONARY DISEASE W (ACUTE) EXACERBATION (3) Diabetes mellitus Code(s): E11.9 - TYPE 2 DIABETES MELLITUS WITHOUT COMPLICATIONS Qualifiers: Diabetes mellitus type: type 2 Diabetes mellitus snf insulin use: without snf use (4) Hypertension Code(s): I10 - ESSENTIAL (PRIMARY) HYPERTENSION Qualifiers: Hypertension type: essential hypertension Qualified Code(s): I10 - Essential (primary) hypertension (5) Interstitial lung disease Code(s): J84.9 - INTERSTITIAL PULMONARY DISEASE, UNSPECIFIED
--- NOTE | 2019-12-13 13:35 | EKG ---
Test Reason : Blood Pressure : / mmHG Vent. Rate : 074 BPM Atrial Rate : 081 BPM P-R Int : 000 ms QRS Dur : 152 ms QT Int : 426 ms P-R-T Axes : 000 010 017 degrees QTc Int : 472 ms ATRIAL FIBRILLATION RIGHT BUNDLE BRANCH BLOCK ABNORMAL ECG WHEN COMPARED WITH ECG OF 10-DEC-2019 13:35, NO SIGNIFICANT CHANGE WAS FOUND Confirmed by BERRY BELTRAN MD ([id number]) on 12/13/2019 1:35:21 PM Referred By: Confirmed By:BERRY BELTRAN MD
--- NOTE | 2019-12-13 14:25 | PN ---
Progress Note, Physician Chief Complaint: Pt A&Ox3; no chest pain; dyspneic on minimal exertion. History of Present Illness: Mr. Calles is a 74 year old white man (. [place]) with a significant PMH of afib, on eliquis and metoprolol, COPD, and likely COVID (in April 2019) who presents to the emergency department for several weeks of worsening SOB on exertion. Pt reports cough without any productive sputum, leg swelling, calf pain or hemotysis. Pt states he was seen by Dr. Douglas this morning, Dr. Douglas pushed him to walk, pt desatted and was advised to come to the ED. Pt states he does not use any oxygen at home. The patient denies chest pain, headache and dizziness. Denies fever, chills, nausea, vomiting, diarrhea and constipation. Denies dysuria, frequency, urgency and hematuria. Pt was going to the gym several times a week and walking 5-6 miles each session until March,; he believes he had COVID 04/2019. He returned to the gym after weeks of quarantine, but had to wear a mask while walking, and stopped going. He has been easily short of breath since. Pt has had an occasional complaint of intermittent episodes of lightheadedness, last episode yesterday this morning, lasts for several minutes at a time and feels like he is about to pass out, but denies any actual syncopal episodes - t here is no associated cp, sob, n/v diaphoresis, palitations with the episodes. - Current Medication List Current Medications: Active Medications Albuterol Sulfate (Ventolin Hfa Inhaler -) 2 puff IH Q6H PRN PRN Reason: ASTHMA Apixaban (Eliquis -) 5 mg PO BID [facility] Last Admin: 12/13/19 09:22 Dose: 5 mg Documented by: Atorvastatin Calcium (Lipitor -) 40 mg PO HS [facility] Last Admin: 12/12/19 21:27 Dose: 40 mg Documented by: Insulin Aspart (Novolog Vial Sliding Scale -) 1 vial SQ [facility]; Protocol Last Admin: 12/13/19 12:01 Dose: 2 units Documented by: Losartan Potassium (Cozaar -) 50 mg PO DAILY [facility] Last Admin: 12/13/19 11:58 Dose: Not Given Documented by: Metformin HCl (Glucophage -) 1,000 mg PO BID@0700,2200 [facility] Last Admin: 12/13/19 06:17 Dose: 1,000 mg Documented by: Methylprednisolone Sodium Succinate (Solu-Medrol -) 40 mg IVPUSH Q8H [facility] Last Admin: 12/13/19 09:22 Dose: 40 mg Documented by: Metoprolol Succinate (Toprol Xl -) 50 mg PO DAILY [facility] Last Admin: 12/13/19 09:22 Dose: 50 mg Documented by: Sitagliptin Phosphate (Januvia -) 100 mg PO ACBK [facility] Last Admin: 12/13/19 06:18 Dose: 100 mg Documented by: Tamsulosin HCl (Flomax -) 0.4 mg PO DAILY@0830 [facility] Last Admin: 12/13/19 09:22 Dose: 0.4 mg Documented by: Tiotropium [place] (Spiriva Respimat) 2 puff IH DAILY [facility] Last Admin: 12/13/19 09:35 Dose: 2 puff Documented by: - Objective Vital Signs: Vital Signs Temperature 97.3 F L 12/13/19 13:33 Pulse Rate 70 12/13/19 13:33 Respiratory Rate 20 12/13/19 13:33 Blood Pressure 119/64 12/13/19 13:33 O2 Sat by Pulse Oximetry (%) 94 L 12/13/19 13:33 Constitutional: Yes: Calm Eyes: Yes: WNL HENT: Yes: WNL Neck: Yes: WNL Cardiovascular: Yes: Pulse Irregular, Murmur, S1 (varies in intensity), S2 (split) Respiratory: Yes: Diminished Gastrointestinal: Yes: Soft ...Rectal Exam: Yes: Deferred Genitourinary: No: Anuria Musculoskeletal: Yes: Muscle Weakness Labs: CBC, BMP 12/12/19 06:27 12/12/19 06:27 Assessment/Plan 74 M, AFib on eliquis, COPD , and COVID (in April 2019). Did not require any hospitalization or specific treatment. Admitted via the ER due to worsening SOB on exertion for the past few days. ECHO showed nl LVEF moderate MR, MVP moderate PHT severely dilated LA RA CT: diffuse bronchiectasis Plan: cont rate control and AC COPD/ILD treatment as per pulmonary Will need CAD workup/evaluation e.g. stress test if not done recently (pt says he had a stress test about 10 yrs ago). Consider [place] (no hx asthma).
[2019-12-13] MEDS ORDERED: INSULIN (NOVOLOG) ASPART 100 UNITS/ML 10ML VIAL ONE (21:05)
[2019-12-13] MEDS: ATORVASTATIN CA 40 MG TABLET (FP) PO SCH (21:14)
[2019-12-14] MEDS: methylPREDNISolone NA SUCC 40 MG/1 ML VIAL IVPUSH SCH ×3 (00:16→17:43)
[2019-12-14] MEDS: INSULIN SLIDING SCALE (NOVOLOG) 1 VIAL SQ SCH ×4 (05:59→22:20)
[2019-12-14] MEDS: metFORMIN HCL 500 MG TABLET (FP) PO SCH ×2 (05:59→22:10)
[2019-12-14 07:20] LABS: BASO % 0.1 % (0-2.0); HEMATOCRIT 35.2 % (35.4-49); HEMOGLOBIN 11.6 GM/dL (11.7-16.9); LYMPH % 4.2 % (8-40); MCH 28.7 pg (25.7-33.7); MEAN PLT VOLUME 8.9 fl (7.5-11.1); MONO % 2.9 % (3.8-10.2); NEUT % 92.8 % (42.8-82.8); PLATELET COUNT 220 K/MM3 (134-434); RBC 4.05 M/mm3 (4.00-5.60); WHITE BLOOD COUNT 16.7 K/mm3 (4.0-10.0)
[2019-12-14 07:52] LABS: ALBUMIN 2.8 g/dl (3.4-5.0); BILIRUBIN,TOTAL 0.6 mg/dL (0.2-1); BLOOD UREA NITROGEN 61.6 mg/dL (7-18); CALCIUM 8.5 mg/dL (8.5-10.1); CREATININE 1.8 mg/dL (0.55-1.3); POTASSIUM 5.4 mmol/L (3.5-5.1); TOT PROT 5.7 g/dl (6.4-8.2)
--- NOTE | 2019-12-14 08:37 | PN ---
Progress Note (short form) - Note Progress Note: CBC, BMP 12/14/19 05:23 12/14/19 05:23 Vital Signs Period Temp Pulse Resp BP Sys/Meraz Pulse Ox Last 24 Hr 97.3 F-97.5 F 64-74 18-20 103-141/64-78 92-94 s1s2 irreg.irreg. lungs better air entry, coarse basal crackles abd soft non tender no edema urinating well breathing better 74 yo man with h/o COPD, Afib, HTN, NIDDM covid19 pneumonia in April-never hospitalized for it now with acute COPD exacerbation interstitial lung ds worse post covid pulm htn on echo iv steroids-slow taper o2 nebulizers sugar control continue home cardiac meds urinary retention on flomax, will dc solifenacin us shows small renal cysts , no obstruction will need home o2-check pre and post stress test on tuesday to r/o cardiac origin of worsening dyspnea Problem List - Problems (1) COPD with acute exacerbation Code(s): J44.1 - CHRONIC OBSTRUCTIVE PULMONARY DISEASE W (ACUTE) EXACERBATION (2) Interstitial lung disease Code(s): J84.9 - INTERSTITIAL PULMONARY DISEASE, UNSPECIFIED (3) Atrial fibrillation Code(s): I48.91 - UNSPECIFIED ATRIAL FIBRILLATION Qualifiers: Atrial fibrillation type: paroxysmal Qualified Code(s): I48.0 - Paroxysmal atrial fibrillation (4) Hypertension Code(s): I10 - ESSENTIAL (PRIMARY) HYPERTENSION Qualifiers: Hypertension type: essential hypertension Qualified Code(s): I10 - Essential (primary) hypertension (5) Diabetes mellitus Code(s): E11.9 - TYPE 2 DIABETES MELLITUS WITHOUT COMPLICATIONS Qualifiers: Diabetes mellitus type: type 2 Diabetes mellitus usp insulin use: without marine steam fitter use
[2019-12-14] MEDS: TAMSULOSIN HCL 0.4 MG CAP PO SCH (09:09)
[2019-12-14] MEDS: LOSARTAN POTASSIUM 50 MG TABLET PO SCH (09:35)
[2019-12-14] MEDS: TIOTROPIUM BROMIDE 2.5 MCG (SPIRIVA) RESPIMAT INHALER IH SCH (09:37)
[2019-12-14] MEDS: APIXABAN 5 MG TABLET PO SCH ×2 (09:37→22:10)
--- NOTE | 2019-12-14 10:06 | PN ---
Progress Note, Physician History of Present Illness: 74 M, AFib on eliquis, COPD, and COVID (in April 2019). Did not require any hospitalization or specific treatment. Admitted via the ER due to worsening SOB on exertion for the past few days. - Current Medication List Current Medications: Active Medications Albuterol Sulfate (Ventolin Hfa Inhaler -) 2 puff IH Q6H PRN PRN Reason: ASTHMA Apixaban (Eliquis -) 5 mg PO BID [facility] Last Admin: 12/14/19 09:37 Dose: 5 mg Documented by: Atorvastatin Calcium (Lipitor -) 40 mg PO HS [facility] Last Admin: 12/13/19 21:14 Dose: 40 mg Documented by: Insulin Aspart (Novolog Vial Sliding Scale -) 1 vial SQ [facility]; Protocol Last Admin: 12/14/19 05:59 Dose: 2 units Documented by: Losartan Potassium (Cozaar -) 50 mg PO DAILY [facility] Last Admin: 12/14/19 09:35 Dose: Not Given Documented by: Metformin HCl (Glucophage -) 1,000 mg PO BID@0700,2200 [facility] Last Admin: 12/14/19 05:59 Dose: 1,000 mg Documented by: Methylprednisolone Sodium Succinate (Solu-Medrol -) 40 mg IVPUSH Q8H [facility] Last Admin: 12/14/19 09:09 Dose: 40 mg Documented by: Metoprolol Succinate (Toprol Xl -) 50 mg PO DAILY [facility] Last Admin: 12/14/19 09:36 Dose: Not Given Documented by: Sitagliptin Phosphate (Januvia -) 100 mg PO ACBK [facility] Last Admin: 12/14/19 05:59 Dose: 100 mg Documented by: Tamsulosin HCl (Flomax -) 0.4 mg PO DAILY@0830 [facility] Last Admin: 12/14/19 09:09 Dose: 0.4 mg Documented by: Tiotropium [place] (Spiriva Respimat) 2 puff IH DAILY [facility] Last Admin: 12/14/19 09:37 Dose: 2 puff Documented by: - Objective Vital Signs: Vital Signs Temperature 98.2 F 12/14/19 09:42 Pulse Rate 72 12/14/19 09:42 Respiratory Rate 18 12/14/19 09:42 Blood Pressure 97/56 L 12/14/19 09:42 O2 Sat by Pulse Oximetry (%) 96 12/14/19 09:42 Eyes: Yes: WNL, Conjunctiva Clear, EOM Intact HENT: Yes: WNL, Atraumatic, Normocephalic Neck: Yes: WNL, Supple, Trachea Midline Cardiovascular: Yes: Pulse Irregular Respiratory: Yes: WNL, Regular, CTA Bilaterally Gastrointestinal: Yes: WNL, Normal Bowel Sounds Genitourinary: Yes: WNL Musculoskeletal: Yes: WNL Extremities: Yes: WNL Edema: No Integumentary: Yes: WNL Neurological: Yes: WNL, Alert, Oriented ...Motor Strength: WNL Psychiatric: Yes: WNL Labs: CBC, BMP 12/14/19 05:23 12/14/19 05:23 Problem List - Problems (1) Atrial fibrillation Code(s): I48.91 - UNSPECIFIED ATRIAL FIBRILLATION Qualifiers: Atrial fibrillation type: paroxysmal Qualified Code(s): I48.0 - Paroxysmal atrial fibrillation (2) COPD with acute exacerbation Code(s): J44.1 - CHRONIC OBSTRUCTIVE PULMONARY DISEASE W (ACUTE) EXACERBATION (3) Diabetes mellitus Code(s): E11.9 - TYPE 2 DIABETES MELLITUS WITHOUT COMPLICATIONS Qualifiers: Diabetes mellitus type: type 2 Diabetes mellitus correction insulin use: without termite control technician use (4) Hypertension Code(s): I10 - ESSENTIAL (PRIMARY) HYPERTENSION Qualifiers: Hypertension type: essential hypertension Qualified Code(s): I10 - Essential (primary) hypertension (5) Interstitial lung disease Code(s): J84.9 - INTERSTITIAL PULMONARY DISEASE, UNSPECIFIED (6) Urinary retention due to benign prostatic hyperplasia Code(s): N40.1 - BENIGN PROSTATIC HYPERPLASIA WITH LOWER URINARY TRACT SYMP; R33.8 - OTHER RETENTION OF URINE Assessment/Plan 74 M, AFib on eliquis, COPD , and COVID (in April 2019). Did not require any hospitalization or specific treatment. Admitted via the ER due to worsening SOB on exertion for the past few days. ECHO showed nl LVEF moderate MR, MVP moderate PHT severely dilated LA RA CT: diffuse bronchiectasis Plan: cont rate control and AC COPD/ILD treatment as per pulmonary Will need CAD workup/evaluation e.g. stress test if not done recently (pt says he had a stress test about 10 yrs ago). Consider Lexiscan (no hx asthma).
[2019-12-14 11:15] LABS: PLATELET ESTIMATE NORMAL
[2019-12-14 11:50] LABS: OVALOCYTE 1+; ROULEAU 1+
[2019-12-14] MEDS ORDERED: INSULIN (NOVOLOG) ASPART 100 UNITS/ML 10ML VIAL ONE (11:57)
--- NOTE | 2019-12-14 14:45 | PN ---
Progress Note (short form) - Note Progress Note: PULMONARY Reports feeling overall better. VSS/AFEBRILE Constitutional: Yes: No Distress, Calm Eyes: Yes: Conjunctiva Clear, EOM Intact HENT: Yes: Atraumatic, Normocephalic Neck: Yes: Supple, Trachea Midline Cardiovascular: Yes: IRRegular Rhythm Respiratory: Yes: Cough, Diminished DIFFUSE BREATH SOUNDS ...Inspection: Yes: WNL ...Clubbing: No Gastrointestinal: Yes: Normal Bowel Sounds, Soft Renal/: Yes: WNL Musculoskeletal: Yes: WNL Extremities: Yes: WNL Edema: No Peripheral Pulses WNL: Yes Integumentary: Yes: WNL Neurological: Yes: WNL, Alert, Oriented ...Motor Strength: WNL Psychiatric: Yes: WNL, Alert, Oriented Labs: NOTED Chest X-ray: Report Reviewed, Image Reviewed Cat Scan: Report Reviewed, Image Reviewed/diffuse emphysematous changes Problem List - Problems (1) Atrial fibrillation Code(s): I48.91 - UNSPECIFIED ATRIAL FIBRILLATION Qualifiers: Atrial fibrillation type: paroxysmal Qualified Code(s): I48.0 - Paroxysmal atrial fibrillation (2) COPD with acute exacerbation Code(s): J44.1 - CHRONIC OBSTRUCTIVE PULMONARY DISEASE W (ACUTE) EXACERBATION (3) Diabetes mellitus Code(s): E11.9 - TYPE 2 DIABETES MELLITUS WITHOUT COMPLICATIONS Qualifiers: Diabetes mellitus type: type 2 Diabetes mellitus jail insulin use: without joint terminal attack controller use (4) Hypertension Code(s): I10 - ESSENTIAL (PRIMARY) HYPERTENSION Qualifiers: Hypertension type: essential hypertension Qualified Code(s): I10 - Essential (primary) hypertension (5) Interstitial lung disease Code(s): J84.9 - INTERSTITIAL PULMONARY DISEASE, UNSPECIFIED Assessment/Plan Possible worsening of ILD due to previous COVID19 pneumonitis Do not suspect PNA PLAN: Medrol to taper Spiriva Supplemental O2 as needed Eliquis Albuterol HFA No smoking Monitor off ABX Check Pre and Post ambulation saturation /may need home o2 will follow Génesis COE MD
[2019-12-14] MEDS: ATORVASTATIN CA 40 MG TABLET (FP) PO SCH (22:10)
[2019-12-15] MEDS: methylPREDNISolone NA SUCC 40 MG/1 ML VIAL IVPUSH SCH ×2 (00:44→09:43)
[2019-12-15] MEDS: metFORMIN HCL 500 MG TABLET (FP) PO SCH ×2 (06:10→22:18)
[2019-12-15] MEDS: INSULIN SLIDING SCALE (NOVOLOG) 1 VIAL SQ SCH ×4 (06:10→22:34)
--- NOTE | 2019-12-15 09:13 | PN ---
Progress Note (short form) - Note Progress Note: Vital Signs Period Temp Pulse Resp BP Sys/Meraz Pulse Ox Last 24 Hr 97.7 F-98.4 F 67-72 18-18 97-125/56-77 95-96 s1s2 irreg.irreg. lungs good air entry, coarse basal crackles abd soft non tender no edema urinating well breathing better 74 yo man with h/o COPD, Afib, HTN, NIDDM covid19 pneumonia in April-never hospitalized for it now with acute COPD exacerbation interstitial lung ds worse post covid pulm htn on echo iv steroids-slow taper o2 nebulizers sugar control continue home cardiac meds urinary retention on flomax us shows small renal cysts , no obstruction will need home o2 stress test on tuesday to r/o cardiac origin of worsening dyspnea Problem List - Problems (1) COPD with acute exacerbation Code(s): J44.1 - CHRONIC OBSTRUCTIVE PULMONARY DISEASE W (ACUTE) EXACERBATION (2) Interstitial lung disease Code(s): J84.9 - INTERSTITIAL PULMONARY DISEASE, UNSPECIFIED (3) Atrial fibrillation Code(s): I48.91 - UNSPECIFIED ATRIAL FIBRILLATION Qualifiers: Atrial fibrillation type: paroxysmal Qualified Code(s): I48.0 - Paroxysmal atrial fibrillation (4) Hypertension Code(s): I10 - ESSENTIAL (PRIMARY) HYPERTENSION Qualifiers: Hypertension type: essential hypertension Qualified Code(s): I10 - Essential (primary) hypertension (5) Diabetes mellitus Code(s): E11.9 - TYPE 2 DIABETES MELLITUS WITHOUT COMPLICATIONS Qualifiers: Diabetes mellitus type: type 2 Diabetes mellitus intermodal dispatcher insulin use: without intermodal dispatcher use
[2019-12-15] MEDS: LOSARTAN POTASSIUM 50 MG TABLET PO SCH (09:41)
[2019-12-15] MEDS: TAMSULOSIN HCL 0.4 MG CAP PO SCH (09:41)
[2019-12-15] MEDS: APIXABAN 5 MG TABLET PO SCH ×2 (09:41→22:18)
[2019-12-15] MEDS: TIOTROPIUM BROMIDE 2.5 MCG (SPIRIVA) RESPIMAT INHALER IH SCH (09:43)
[2019-12-15] MEDS ORDERED: methylPREDNISolone NA SUCC 40 MG/1 ML VIAL IVPUSH SCH (10:00)
--- NOTE | 2019-12-15 13:04 | PN ---
Progress Note (short form) - Note Progress Note: PULMONARY Reports feeling overall better. VSS/AFEBRILE Constitutional: Yes: No Distress, Calm Eyes: Yes: Conjunctiva Clear, EOM Intact HENT: Yes: Atraumatic, Normocephalic Neck: Yes: Supple, Trachea Midline Cardiovascular: Yes: IRRegular Rhythm Respiratory: Yes: Cough, Diminished DIFFUSE BREATH SOUNDS ...Inspection: Yes: WNL ...Clubbing: No Gastrointestinal: Yes: Normal Bowel Sounds, Soft Renal/: Yes: WNL Musculoskeletal: Yes: WNL Extremities: Yes: WNL Edema: No Peripheral Pulses WNL: Yes Integumentary: Yes: WNL Neurological: Yes: WNL, Alert, Oriented ...Motor Strength: WNL Psychiatric: Yes: WNL, Alert, Oriented Labs: NOTED Chest X-ray: Report Reviewed, Image Reviewed Cat Scan: Report Reviewed, Image Reviewed/diffuse emphysematous changes Problem List - Problems (1) Atrial fibrillation Code(s): I48.91 - UNSPECIFIED ATRIAL FIBRILLATION Qualifiers: Atrial fibrillation type: paroxysmal Qualified Code(s): I48.0 - Paroxysmal atrial fibrillation (2) COPD with acute exacerbation Code(s): J44.1 - CHRONIC OBSTRUCTIVE PULMONARY DISEASE W (ACUTE) EXACERBATION (3) Diabetes mellitus Code(s): E11.9 - TYPE 2 DIABETES MELLITUS WITHOUT COMPLICATIONS Qualifiers: Diabetes mellitus type: type 2 Diabetes mellitus custodial insulin use: without terminal computer operator use (4) Hypertension Code(s): I10 - ESSENTIAL (PRIMARY) HYPERTENSION Qualifiers: Hypertension type: essential hypertension Qualified Code(s): I10 - Essential (primary) hypertension (5) Interstitial lung disease Code(s): J84.9 - INTERSTITIAL PULMONARY DISEASE, UNSPECIFIED Assessment/Plan Possible worsening of ILD due to previous COVID19 pneumonitis Do not suspect PNA PLAN: Medrol to prednisone Spiriva/symbicort Supplemental O2 as needed Eliquis Albuterol HFA prn No smoking Monitor off ABX Check Pre and Post ambulation saturation /may need home o2 will follow Génesis COE MD
[2019-12-15] MEDS ORDERED: PT OWN MED DRAWER 7, Y5N ONE (16:44)
[2019-12-15] MEDS: predniSONE 20 MG TABLET (UD) PO SCH (16:53)
[2019-12-15] MEDS: BUDESONIDE/FORMETEROL FUMARATE 160/4.5 mcg INHALER IH SCH (16:53)
--- NOTE | 2019-12-15 17:40 | PN ---
Progress Note, Physician History of Present Illness: 74 M, AFib on eliquis, COPD, and COVID (in April 2019). Did not require any hospitalization or specific treatment. Admitted via the ER due to worsening SOB on exertion for the past few days. - Current Medication List Current Medications: Active Medications Albuterol Sulfate (Ventolin Hfa Inhaler -) 2 puff IH Q6H PRN PRN Reason: ASTHMA Apixaban (Eliquis -) 5 mg PO BID [facility] Last Admin: 12/15/19 09:41 Dose: 5 mg Documented by: Atorvastatin Calcium (Lipitor -) 40 mg PO HS [facility] Last Admin: 12/14/19 22:10 Dose: 40 mg Documented by: Budesonide/Formoterol Fumarate (Symbicort 160/4.5mcg -) 2 puff IH DAILY [facility] Last Admin: 12/15/19 16:53 Dose: 2 puff Documented by: Insulin Aspart (Novolog Vial Sliding Scale -) 1 vial SQ [facility]; Protocol Last Admin: 12/15/19 17:01 Dose: 2 units Documented by: Losartan Potassium (Cozaar -) 50 mg PO DAILY [facility] Last Admin: 12/15/19 09:41 Dose: 50 mg Documented by: Metformin HCl (Glucophage -) 1,000 mg PO BID@0700,2200 [facility] Last Admin: 12/15/19 06:10 Dose: 1,000 mg Documented by: Metoprolol Succinate (Toprol Xl -) 50 mg PO DAILY [facility] Last Admin: 12/15/19 09:42 Dose: 50 mg Documented by: Prednisone (Deltasone -) 40 mg PO DAILY [facility] Last Admin: 12/15/19 16:53 Dose: 40 mg Documented by: Sitagliptin Phosphate (Januvia -) 100 mg PO ACBK [facility] Last Admin: 12/15/19 06:10 Dose: 100 mg Documented by: Tamsulosin HCl (Flomax -) 0.4 mg PO DAILY@0830 [facility] Last Admin: 12/15/19 09:41 Dose: 0.4 mg Documented by: Tiotropium [place] (Spiriva Respimat) 2 puff IH DAILY [facility] Last Admin: 12/15/19 09:43 Dose: 2 puff Documented by: - Objective Vital Signs: Vital Signs Temperature 97.5 F L 12/15/19 13:37 Pulse Rate 73 12/15/19 13:37 Respiratory Rate 18 12/15/19 13:37 Blood Pressure 115/66 12/15/19 13:37 O2 Sat by Pulse Oximetry (%) 96 12/15/19 10:32 Eyes: Yes: WNL, Conjunctiva Clear, EOM Intact HENT: Yes: WNL, Atraumatic, Normocephalic Neck: Yes: WNL, Supple, Trachea Midline Cardiovascular: Yes: WNL, Regular Rate and Rhythm Respiratory: Yes: WNL, Regular, CTA Bilaterally Gastrointestinal: Yes: WNL, Normal Bowel Sounds Genitourinary: Yes: WNL Musculoskeletal: Yes: WNL Extremities: Yes: WNL Edema: No Integumentary: Yes: WNL Neurological: Yes: WNL, Alert, Oriented ...Motor Strength: WNL Psychiatric: Yes: WNL Labs: CBC, BMP 12/14/19 05:23 12/14/19 05:23 Problem List - Problems (1) Atrial fibrillation Code(s): I48.91 - UNSPECIFIED ATRIAL FIBRILLATION Qualifiers: Atrial fibrillation type: paroxysmal Qualified Code(s): I48.0 - Paroxysmal atrial fibrillation (2) COPD with acute exacerbation Code(s): J44.1 - CHRONIC OBSTRUCTIVE PULMONARY DISEASE W (ACUTE) EXACERBATION (3) Diabetes mellitus Code(s): E11.9 - TYPE 2 DIABETES MELLITUS WITHOUT COMPLICATIONS Qualifiers: Diabetes mellitus type: type 2 Diabetes mellitus fpc insulin use: without long term care phlebotomist use (4) Hypertension Code(s): I10 - ESSENTIAL (PRIMARY) HYPERTENSION Qualifiers: Hypertension type: essential hypertension Qualified Code(s): I10 - Essential (primary) hypertension (5) Interstitial lung disease Code(s): J84.9 - INTERSTITIAL PULMONARY DISEASE, UNSPECIFIED (6) Urinary retention due to benign prostatic hyperplasia Code(s): N40.1 - BENIGN PROSTATIC HYPERPLASIA WITH LOWER URINARY TRACT SYMP; R33.8 - OTHER RETENTION OF URINE Assessment/Plan 74 M, AFib on eliquis, COPD , and COVID (in April 2019). Did not require any hospitalization or specific treatment. Admitted via the ER due to worsening SOB on exertion for the past few days. ECHO showed nl LVEF moderate MR, MVP moderate PHT severely dilated LA RA CT: diffuse bronchiectasis Plan: cont rate control and AC COPD/ILD treatment as per pulmonary Will need CAD workup/evaluation e.g. stress test if not done recently (pt says he had a stress test about 10 yrs ago). Consider Lexiscan (no hx asthma).
[2019-12-15] MEDS: ATORVASTATIN CA 40 MG TABLET (FP) PO SCH (22:18)
[2019-12-16] MEDS: metFORMIN HCL 500 MG TABLET (FP) PO SCH ×2 (06:14→21:31)
[2019-12-16] MEDS: INSULIN SLIDING SCALE (NOVOLOG) 1 VIAL SQ SCH ×4 (07:07→21:54)
[2019-12-16 07:12] LABS: BASO % 0.2 % (0-2.0); EOS % 0.1 % (0-4.5); HEMATOCRIT 39.6 % (35.4-49); HEMOGLOBIN 13.2 GM/dL (11.7-16.9); LYMPH % 6.3 % (8-40); MCH 29.3 pg (25.7-33.7); MCHC 33.2 g/dl (32.0-35.9); MEAN CELL VOLUME 88.2 fl (80-96); MEAN PLT VOLUME 8.7 fl (7.5-11.1); MONO % 7.4 % (3.8-10.2); PLATELET COUNT 241 K/MM3 (134-434); RBC 4.49 M/mm3 (4.00-5.60); RDW 15.7 % (11.9-15.9); WHITE BLOOD COUNT 16.4 K/mm3 (4.0-10.0)
[2019-12-16 07:49] LABS: CALCIUM 8.7 mg/dL (8.5-10.1)
[2019-12-16 07:50] LABS: ALBUMIN 2.9 g/dl (3.4-5.0); BLOOD UREA NITROGEN 46.9 mg/dL (7-18)
[2019-12-16 07:53] LABS: CREATININE 1.6 mg/dL (0.55-1.3)
[2019-12-16 07:54] LABS: BILIRUBIN,TOTAL 0.5 mg/dL (0.2-1)
[2019-12-16 07:55] LABS: TOT PROT 5.8 g/dl (6.4-8.2)
[2019-12-16] MEDS: APIXABAN 5 MG TABLET PO SCH ×2 (09:33→21:31)
[2019-12-16] MEDS: TAMSULOSIN HCL 0.4 MG CAP PO SCH (09:33)
[2019-12-16] MEDS: LOSARTAN POTASSIUM 50 MG TABLET PO SCH (09:33)
[2019-12-16] MEDS: predniSONE 20 MG TABLET (UD) PO SCH (09:34)
[2019-12-16] MEDS: BUDESONIDE/FORMETEROL FUMARATE 160/4.5 mcg INHALER IH SCH (09:35)
[2019-12-16] MEDS: TIOTROPIUM BROMIDE 2.5 MCG (SPIRIVA) RESPIMAT INHALER IH SCH (09:35)
--- NOTE | 2019-12-16 09:40 | PN ---
Progress Note (short form) - Note Progress Note: CBC, BMP 12/16/19 06:34 12/16/19 06:34 Vital Signs Period Temp Pulse Resp BP Sys/Meraz Pulse Ox Last 24 Hr 97.5 F-98 F 64-73 18-18 115-133/56-86 94-97 s1s2 irreg.irreg. lungs good air entry, coarse basal crackles abd soft non tender no edema urinating well breathing better 74 yo man with h/o COPD, Afib, HTN, NIDDM covid19 pneumonia in April-never hospitalized for it now with acute COPD exacerbation interstitial lung ds worse post covid pulm htn on echo switched to po steroid o2 nebulizers sugar control continue home cardiac meds urinary retention-voiding well now on flomax us shows small renal cysts , no obstruction will need home o2 stress test tomorrow to r/o cardiac origin of worsening dyspnea if ok, can dc home in the afternoon Problem List - Problems (1) COPD with acute exacerbation Code(s): J44.1 - CHRONIC OBSTRUCTIVE PULMONARY DISEASE W (ACUTE) EXACERBATION (2) Interstitial lung disease Code(s): J84.9 - INTERSTITIAL PULMONARY DISEASE, UNSPECIFIED (3) Atrial fibrillation Code(s): I48.91 - UNSPECIFIED ATRIAL FIBRILLATION Qualifiers: Atrial fibrillation type: paroxysmal Qualified Code(s): I48.0 - Paroxysmal atrial fibrillation (4) Hypertension Code(s): I10 - ESSENTIAL (PRIMARY) HYPERTENSION Qualifiers: Hypertension type: essential hypertension Qualified Code(s): I10 - Essential (primary) hypertension (5) Diabetes mellitus Code(s): E11.9 - TYPE 2 DIABETES MELLITUS WITHOUT COMPLICATIONS Qualifiers: Diabetes mellitus type: type 2 Diabetes mellitus rodent exterminator insulin use: without fdc use
--- NOTE | 2019-12-16 12:55 | PN ---
Progress Note (short form) - Note Progress Note: PULMONARY SPO2 97% 3L/M RESTING COMFORTABLY VSS/AFEBRILE Constitutional: Yes: No Distress, Calm Eyes: Yes: Conjunctiva Clear, EOM Intact HENT: Yes: Atraumatic, Normocephalic Neck: Yes: Supple, Trachea Midline Cardiovascular: Yes: IRRegular Rhythm Respiratory: Yes: Cough, Diminished DIFFUSE BREATH SOUNDS ...Inspection: Yes: WNL ...Clubbing: No Gastrointestinal: Yes: Normal Bowel Sounds, Soft Renal/: Yes: WNL Musculoskeletal: Yes: WNL Extremities: Yes: WNL Edema: No Peripheral Pulses WNL: Yes Integumentary: Yes: WNL Neurological: Yes: WNL, Alert, Oriented ...Motor Strength: WNL Psychiatric: Yes: WNL, Alert, Oriented Labs: NOTED Chest X-ray: Report Reviewed, Image Reviewed Cat Scan: Report Reviewed, Image Reviewed/diffuse emphysematous changes Problem List - Problems (1) Atrial fibrillation Code(s): I48.91 - UNSPECIFIED ATRIAL FIBRILLATION Qualifiers: Atrial fibrillation type: paroxysmal Qualified Code(s): I48.0 - Paroxysmal atrial fibrillation (2) COPD with acute exacerbation Code(s): J44.1 - CHRONIC OBSTRUCTIVE PULMONARY DISEASE W (ACUTE) EXACERBATION (3) Diabetes mellitus Code(s): E11.9 - TYPE 2 DIABETES MELLITUS WITHOUT COMPLICATIONS Qualifiers: Diabetes mellitus type: type 2 Diabetes mellitus assisted insulin use: without assisted use (4) Hypertension Code(s): I10 - ESSENTIAL (PRIMARY) HYPERTENSION Qualifiers: Hypertension type: essential hypertension Qualified Code(s): I10 - Essential (primary) hypertension (5) Interstitial lung disease Code(s): J84.9 - INTERSTITIAL PULMONARY DISEASE, UNSPECIFIED Assessment/Plan Possible worsening of ILD due to previous COVID19 pneumonitis Do not suspect PNA PLAN: Medrol to prednisone Spiriva/symbicort Supplemental O2 as needed Eliquis Albuterol HFA prn No smoking Monitor off ABX Check Pre and Post ambulation saturation /may need home o2 will follow Génesis COE MD
--- NOTE | 2019-12-16 16:48 | PN ---
Progress Note, Physician History of Present Illness: 74 M, AFib on eliquis, COPD, and COVID (in April 2019). Did not require any hospitalization or specific treatment. Admitted via the ER due to worsening SOB on exertion for the past few days. - Current Medication List Current Medications: Active Medications Albuterol Sulfate (Ventolin Hfa Inhaler -) 2 puff IH Q6H PRN PRN Reason: ASTHMA Apixaban (Eliquis -) 5 mg PO BID [facility] Last Admin: 12/16/19 09:33 Dose: 5 mg Documented by: Atorvastatin Calcium (Lipitor -) 40 mg PO HS [facility] Last Admin: 12/15/19 22:18 Dose: 40 mg Documented by: Budesonide/Formoterol Fumarate (Symbicort 160/4.5mcg -) 2 puff IH DAILY [facility] Last Admin: 12/16/19 09:35 Dose: 2 puff Documented by: Insulin Aspart (Novolog Vial Sliding Scale -) 1 vial SQ [facility]; Protocol Last Admin: 12/16/19 12:58 Dose: Not Given Documented by: Losartan Potassium (Cozaar -) 50 mg PO DAILY [facility] Last Admin: 12/16/19 09:33 Dose: 50 mg Documented by: Metformin HCl (Glucophage -) 1,000 mg PO BID@0700,2200 [facility] Last Admin: 12/16/19 06:14 Dose: 1,000 mg Documented by: Metoprolol Succinate (Toprol Xl -) 50 mg PO DAILY [facility] Last Admin: 12/16/19 09:33 Dose: 50 mg Documented by: Prednisone (Deltasone -) 40 mg PO DAILY [facility] Last Admin: 12/16/19 09:34 Dose: 40 mg Documented by: Sitagliptin Phosphate (Januvia -) 100 mg PO ACBK [facility] Last Admin: 12/16/19 06:14 Dose: 100 mg Documented by: Tamsulosin HCl (Flomax -) 0.4 mg PO DAILY@0830 [facility] Last Admin: 12/16/19 09:33 Dose: 0.4 mg Documented by: Tiotropium [place] (Spiriva Respimat) 2 puff IH DAILY [facility] Last Admin: 12/16/19 09:35 Dose: 2 puff Documented by: - Objective Vital Signs: Vital Signs Temperature 97.7 F 12/16/19 13:33 Pulse Rate 77 12/16/19 13:33 Respiratory Rate 20 12/16/19 13:33 Blood Pressure 114/68 12/16/19 13:33 O2 Sat by Pulse Oximetry (%) 97 12/16/19 13:33 Eyes: Yes: WNL, Conjunctiva Clear, EOM Intact HENT: Yes: WNL, Atraumatic, Normocephalic Neck: Yes: WNL, Supple, Trachea Midline Cardiovascular: Yes: WNL, Regular Rate and Rhythm, Pulse Irregular, S1, S2 Respiratory: Yes: WNL, Regular, CTA Bilaterally Gastrointestinal: Yes: WNL, Normal Bowel Sounds Genitourinary: Yes: WNL Musculoskeletal: Yes: WNL Extremities: Yes: WNL Edema: No Integumentary: Yes: WNL Neurological: Yes: WNL, Alert, Oriented ...Motor Strength: WNL Psychiatric: Yes: WNL Labs: CBC, BMP 12/16/19 06:34 12/16/19 06:34 Problem List - Problems (1) Atrial fibrillation Code(s): I48.91 - UNSPECIFIED ATRIAL FIBRILLATION Qualifiers: Atrial fibrillation type: paroxysmal Qualified Code(s): I48.0 - Paroxysmal atrial fibrillation (2) COPD with acute exacerbation Code(s): J44.1 - CHRONIC OBSTRUCTIVE PULMONARY DISEASE W (ACUTE) EXACERBATION (3) Diabetes mellitus Code(s): E11.9 - TYPE 2 DIABETES MELLITUS WITHOUT COMPLICATIONS Qualifiers: Diabetes mellitus type: type 2 Diabetes mellitus residential insulin use: without residential use (4) Hypertension Code(s): I10 - ESSENTIAL (PRIMARY) HYPERTENSION Qualifiers: Hypertension type: essential hypertension Qualified Code(s): I10 - Essential (primary) hypertension (5) Interstitial lung disease Code(s): J84.9 - INTERSTITIAL PULMONARY DISEASE, UNSPECIFIED (6) Urinary retention due to benign prostatic hyperplasia Code(s): N40.1 - BENIGN PROSTATIC HYPERPLASIA WITH LOWER URINARY TRACT SYMP; R33.8 - OTHER RETENTION OF URINE Assessment/Plan 74 M, AFib on eliquis, COPD , and COVID (in April 2019). Did not require any hospitalization or specific treatment. Admitted via the ER due to worsening SOB on exertion for the past few days. ECHO showed nl LVEF moderate MR, MVP moderate PHT severely dilated LA RA CT: diffuse bronchiectasis Plan: cont rate control and AC COPD/ILD treatment as per pulmonary Will need CAD workup/evaluation e.g. stress test if not done recently (pt says he had a stress test about 10 yrs ago). Lexiscan MIBI in AM.
[2019-12-16] MEDS: ATORVASTATIN CA 40 MG TABLET (FP) PO SCH (21:31)
[2019-12-17 06:03] VITALS: TEMP 97.7
[2019-12-17] MEDS: metFORMIN HCL 500 MG TABLET (FP) PO SCH (06:13)
[2019-12-17] MEDS: INSULIN SLIDING SCALE (NOVOLOG) 1 VIAL SQ SCH ×3 (06:14→16:50)
--- NOTE | 2019-12-17 08:16 | PN ---
Progress Note (short form) - Note Progress Note: Vital Signs Period Temp Pulse Resp BP Sys/Meraz Pulse Ox Last 24 Hr 97.3 F-97.7 F 59-77 18-20 106-114/53-68 93-97 CBC, BMP 12/16/19 06:34 12/16/19 06:34 s1s2 irreg.irreg. lungs good air entry, coarse basal crackles abd soft non tender no edema urinating well breathing better 74 yo man with h/o COPD, Afib, HTN, NIDDM covid19 pneumonia in April-never hospitalized for it now with acute COPD exacerbation interstitial lung ds worse post covid pulm htn on echo switched to po steroid o2 nebulizers sugar control continue home cardiac meds urinary retention-voiding well now on flomax us shows small renal cysts , no obstruction will need home o2 stress test today to r/o cardiac origin of worsening dyspnea if ok, can dc home in the afternoon Problem List - Problems (1) COPD with acute exacerbation Code(s): J44.1 - CHRONIC OBSTRUCTIVE PULMONARY DISEASE W (ACUTE) EXACERBATION (2) Interstitial lung disease Code(s): J84.9 - INTERSTITIAL PULMONARY DISEASE, UNSPECIFIED (3) Atrial fibrillation Code(s): I48.91 - UNSPECIFIED ATRIAL FIBRILLATION Qualifiers: Atrial fibrillation type: paroxysmal Qualified Code(s): I48.0 - Paroxysmal atrial fibrillation (4) Hypertension Code(s): I10 - ESSENTIAL (PRIMARY) HYPERTENSION Qualifiers: Hypertension type: essential hypertension Qualified Code(s): I10 - Essential (primary) hypertension (5) Diabetes mellitus Code(s): E11.9 - TYPE 2 DIABETES MELLITUS WITHOUT COMPLICATIONS Qualifiers: Diabetes mellitus type: type 2 Diabetes mellitus ad terminal makeup operator insulin use: without ad terminal makeup operator use
--- NOTE | 2019-12-17 10:56 | PN ---
Progress Note (short form) - Note Progress Note: PULMONARY Denies shortness of breath, cough. No chest pain. Vital Signs Period Temp Pulse Resp BP Sys/Meraz Pulse Ox Last 24 Hr 97.3 F-97.7 F 59-77 18-20 106-114/53-68 93-97 Gen: NAD at rest Heart: RRR Lung: decreased breath sounds at the bases Abd: soft, nontender Ext: no edema CBC, BMP 12/16/19 06:34 12/16/19 06:34 Active Medications Albuterol Sulfate (Ventolin Hfa Inhaler -) 2 puff IH Q6H PRN PRN Reason: ASTHMA Apixaban (Eliquis -) 5 mg PO BID [facility] Last Admin: 12/16/19 21:31 Dose: 5 mg Documented by: Atorvastatin Calcium (Lipitor -) 40 mg PO HS [facility] Last Admin: 12/16/19 21:31 Dose: 40 mg Documented by: Budesonide/Formoterol Fumarate (Symbicort 160/4.5mcg -) 2 puff IH DAILY [facility] Last Admin: 12/16/19 09:35 Dose: 2 puff Documented by: Insulin Aspart (Novolog Vial Sliding Scale -) 1 vial SQ [facility]; Protocol Last Admin: 12/17/19 06:14 Dose: Not Given Documented by: Losartan Potassium (Cozaar -) 50 mg PO DAILY [facility] Last Admin: 12/16/19 09:33 Dose: 50 mg Documented by: Metformin HCl (Glucophage -) 1,000 mg PO BID@0700,2200 [facility] Last Admin: 12/17/19 06:13 Dose: 1,000 mg Documented by: Metoprolol Succinate (Toprol Xl -) 50 mg PO DAILY [facility] Last Admin: 12/16/19 09:33 Dose: 50 mg Documented by: Prednisone (Deltasone -) 40 mg PO DAILY [facility] Last Admin: 12/16/19 09:34 Dose: 40 mg Documented by: Sitagliptin Phosphate (Januvia -) 100 mg PO ACBK [facility] Last Admin: 12/17/19 06:13 Dose: 100 mg Documented by: Tamsulosin HCl (Flomax -) 0.4 mg PO DAILY@0830 [facility] Last Admin: 12/16/19 09:33 Dose: 0.4 mg Documented by: Tiotropium [place] (Spiriva Respimat) 2 puff IH DAILY [facility] Last Admin: 12/16/19 09:35 Dose: 2 puff Documented by: A/P Acute COPD Exacerbation Interstitial Lung Disease Atrial Fibrillation HTN DM - prednisone taper - inhaled bronchodilators - O2 to keep Spo2 >90% - rate control - continue anticoagulation - for stress test - d/c planning in progress
[2019-12-17 11:27] VITALS: BP 118/68; PULSE 68
[2019-12-17] MEDS: BUDESONIDE/FORMETEROL FUMARATE 160/4.5 mcg INHALER IH SCH (11:40)
[2019-12-17] MEDS: TIOTROPIUM BROMIDE 2.5 MCG (SPIRIVA) RESPIMAT INHALER IH SCH (11:40)
[2019-12-17] MEDS ORDERED: REGADENOSON 0.4 MG/5 ML PRE-FILLED SYRINGE IVPUSH ONE ×3 (12:54→14:30)
--- NOTE | 2019-12-17 15:34 | PN ---
Progress Note, Physician History of Present Illness: 74 M, AFib on eliquis, COPD, and COVID (in April 2019). Did not require any hospitalization or specific treatment. Admitted via the ER due to worsening SOB on exertion for the past few days. - Current Medication List Current Medications: Active Medications Albuterol Sulfate (Ventolin Hfa Inhaler -) 2 puff IH Q6H PRN PRN Reason: ASTHMA Apixaban (Eliquis -) 5 mg PO BID [facility] Last Admin: 12/16/19 21:31 Dose: 5 mg Documented by: Atorvastatin Calcium (Lipitor -) 40 mg PO HS [facility] Last Admin: 12/16/19 21:31 Dose: 40 mg Documented by: Budesonide/Formoterol Fumarate (Symbicort 160/4.5mcg -) 2 puff IH DAILY [facility] Last Admin: 12/17/19 11:40 Dose: 2 puff Documented by: Insulin Aspart (Novolog Vial Sliding Scale -) 1 vial SQ [facility]; Protocol Last Admin: 12/17/19 11:48 Dose: Not Given Documented by: Losartan Potassium (Cozaar -) 50 mg PO DAILY [facility] Last Admin: 12/16/19 09:33 Dose: 50 mg Documented by: Metformin HCl (Glucophage -) 1,000 mg PO BID@0700,2200 [facility] Last Admin: 12/17/19 06:13 Dose: 1,000 mg Documented by: Metoprolol Succinate (Toprol Xl -) 50 mg PO DAILY [facility] Last Admin: 12/16/19 09:33 Dose: 50 mg Documented by: Prednisone (Deltasone -) 40 mg PO DAILY [facility] Last Admin: 12/16/19 09:34 Dose: 40 mg Documented by: Sitagliptin Phosphate (Januvia -) 100 mg PO ACBK [facility] Last Admin: 12/17/19 06:13 Dose: 100 mg Documented by: Tamsulosin HCl (Flomax -) 0.4 mg PO DAILY@0830 [facility] Last Admin: 12/16/19 09:33 Dose: 0.4 mg Documented by: Tiotropium [place] (Spiriva Respimat) 2 puff IH DAILY [facility] Last Admin: 12/17/19 11:40 Dose: 2 puff Documented by: - Objective Vital Signs: Vital Signs Temperature 97.7 F 12/17/19 10:00 Pulse Rate 68 12/17/19 10:00 Respiratory Rate 18 12/17/19 10:00 Blood Pressure 118/68 12/17/19 10:00 O2 Sat by Pulse Oximetry (%) 91 L 12/17/19 10:00 Eyes: Yes: WNL, Conjunctiva Clear, EOM Intact HENT: Yes: WNL, Atraumatic, Normocephalic Neck: Yes: WNL, Supple, Trachea Midline Cardiovascular: Yes: WNL, Regular Rate and Rhythm Respiratory: Yes: WNL, Regular, CTA Bilaterally Gastrointestinal: Yes: WNL, Normal Bowel Sounds Genitourinary: Yes: WNL Musculoskeletal: Yes: WNL Extremities: Yes: WNL Edema: No Integumentary: Yes: WNL Neurological: Yes: WNL, Alert, Oriented ...Motor Strength: WNL Psychiatric: Yes: WNL Labs: CBC, BMP 12/16/19 06:34 12/16/19 06:34 Problem List - Problems (1) Atrial fibrillation Code(s): I48.91 - UNSPECIFIED ATRIAL FIBRILLATION Qualifiers: Atrial fibrillation type: paroxysmal Qualified Code(s): I48.0 - Paroxysmal atrial fibrillation (2) COPD with acute exacerbation Code(s): J44.1 - CHRONIC OBSTRUCTIVE PULMONARY DISEASE W (ACUTE) EXACERBATION (3) Diabetes mellitus Code(s): E11.9 - TYPE 2 DIABETES MELLITUS WITHOUT COMPLICATIONS Qualifiers: Diabetes mellitus type: type 2 Diabetes mellitus usp insulin use: without manager long term care use (4) Hypertension Code(s): I10 - ESSENTIAL (PRIMARY) HYPERTENSION Qualifiers: Hypertension type: essential hypertension Qualified Code(s): I10 - Essential (primary) hypertension (5) Interstitial lung disease Code(s): J84.9 - INTERSTITIAL PULMONARY DISEASE, UNSPECIFIED (6) Urinary retention due to benign prostatic hyperplasia Code(s): N40.1 - BENIGN PROSTATIC HYPERPLASIA WITH LOWER URINARY TRACT SYMP; R33.8 - OTHER RETENTION OF URINE Assessment/Plan 74 M, AFib on eliquis, COPD , and COVID (in April 2019). Did not require any hospitalization or specific treatment. Admitted via the ER due to worsening SOB on exertion for the past few days. ECHO showed nl LVEF moderate MR, MVP moderate PHT severely dilated LA RA CT: diffuse bronchiectasis Plan: cont rate control and AC COPD/ILD treatment as per pulmonary Will need CAD workup/evaluation e.g. stress test if not done recently (pt says he had a stress test about 10 yrs ago). Lexiscan MIBI done results pending.
[2019-12-17] MEDS: predniSONE 20 MG TABLET (UD) PO SCH (16:24)
[2019-12-17] MEDS: LOSARTAN POTASSIUM 50 MG TABLET PO SCH (16:26)
[2019-12-17] MEDS: TAMSULOSIN HCL 0.4 MG CAP PO SCH (16:26)
[2019-12-17] MEDS: APIXABAN 5 MG TABLET PO SCH (16:26)
--- NOTE | 2019-12-17 17:35 | DS ---
Physical Examination Vital Signs: Vital Signs Temperature 97.7 F 12/17/19 10:00 Pulse Rate 68 12/17/19 10:00 Respiratory Rate 18 12/17/19 10:00 Blood Pressure 118/68 12/17/19 10:00 O2 Sat by Pulse Oximetry (%) 91 L 12/17/19 10:00 Constitutional: Yes: No Distress, Calm Eyes: Yes: EOM Intact HENT: Yes: Normocephalic Neck: Yes: Trachea Midline Cardiovascular: Yes: Regular Rate and Rhythm Respiratory: Yes: CTA Bilaterally Gastrointestinal: Yes: Normal Bowel Sounds, Soft Edema: No Peripheral Pulses WNL: Yes ...Motor Strength: WNL Psychiatric: Yes: WNL Labs: CBC, BMP 12/16/19 06:34 12/16/19 06:34 Discharge Summary Problems reviewed: Yes Reason For Visit: HYPOXIA Current Active Problems Atrial fibrillation (Acute) COPD with acute exacerbation (Acute) Diabetes mellitus (Acute) Hypertension (Acute) Interstitial lung disease (Acute) Urinary retention due to benign prostatic hyperplasia (Acute) Hospital Course: 74 yo man with h/o COPD, Afib, HTN, NIDDM covid19 pneumonia in April-never hospitalized for it admitted for acute respiratory failure due to acute COPD exacerbation and underlying interstitial lung ds worse post covid improved with bipap initially, then o2 supplementation and steroids pulm htn on echo nuclear stress test was normal hospital course was complicated by urinary retention-voiding well now on flomax us shows small renal cysts , no obstruction medically stable to dc home with home o2 and slow steroid taper Condition: Fair - Instructions Disposition: HOME - Home Medications Comprehensive Discharge Medication List: Ambulatory Orders Albuterol Sulfate Inhaler - [Ventolin HFA Inhaler -] 2 inh PO QID 12/10/19 Apixaban [Eliquis] 5 mg PO BID 12/10/19 Atorvastatin Calcium 40 mg PO HS 12/10/19 Losartan Potassium 50 mg PO DAILY 12/10/19 Metformin HCl [Glucophage] 1,000 mg PO BID 12/10/19 Metoprolol Succinate 50 mg PO DAILY 12/10/19 Saxagliptin HCl [Onglyza] 5 mg PO DAILY 12/10/19 Budesonide/Formeterol Fumarate [SYMBICORT 160/4.5mcg -] 2 puff IH DAILY inhaler 12/17/19 Prednisone 5 mg PO DAILY #62 tab.ds.pk 12/17/19 Tamsulosin HCl [Flomax -] 0.4 mg PO DAILY@0830 #30 cap.er.24h 12/17/19 Tiotropium [place] [Spiriva Respimat] 2 puff IH DAILY inhaler 12/17/19
== END 2019-12-17 18:25 | disposition home or self-care (01) | DRG 196 ==
LOC: JER 12:47 → JERBED 14:30 → J7W 21:00
PROVIDERS: ADMIT Internal Medicine; ATTEND Internal Medicine
PROC: 0T9B80Z Drainage of Bladder with Drainage Device, Via Natural or Artificial Opening Endoscopic (ICD-10-PCS; principal; 2019-12-11)
DX: J84.9 Interstitial pulmonary disease, unspecified (principal); J96.01 Acute respiratory failure with hypoxia; J44.1 Chronic obstructive pulmonary disease with (acute) exacerbation; I48.91 Unspecified atrial fibrillation; I10 Essential (primary) hypertension; E11.9 Type 2 diabetes mellitus without complications; R33.9 Retention of urine, unspecified; I27.20 Pulmonary hypertension, unspecified; N40.1 Benign prostatic hyperplasia with lower urinary tract symptoms
CPT/HCPCS: 36415; 36600; 71045-TC-FY; 76775-TC; 78452-TC; 80053; 82550; 82803; 82962; 83735; 83880; 84484; 85025; 93005; 93010; 93017; 93306-TC; 94660; 94761; 97116-GP; 97161-GP; 99285-25; A9502; C9803; J1100; J2785; U0003